=== PATIENT | male | born 1950 | race Caucasian/White ===

== ENCOUNTER → 2017-02-20 | Outpatient (CLI) | payer BC ==
[2017-02-20 10:11] LABS: ALT/SGPT 22 U/L (12-78); BLOOD UREA NITROGEN 19 mg/dl (7-18); BUN/CREATININE RATIO 19.9 (10-20); CARBON DIOXIDE 24 mmol/L (21-32); CHLORIDE 105 mmol/L (98-107); CHOLESTEROL 162 mg/dl (0-200); CREATININE 0.93 mg/dl (0.60-1.40); GLUCOSE 216 mg/dl (70-99); SODIUM 139 mmol/L (136-145); TRIGLYCERIDES 92 mg/dl (0-150); VERY LOW DENSITY LIPOPROT CALC 18 mg/dl
[2017-02-20 10:15] LABS: ALB/GLOB RATIO 1.1 (0.9-2); ALKALINE PHOSPHATASE 65 U/L (45-117); AST/SGOT 12 U/L (15-37); CHOLESTEROL/HDL RATIO 2.9; HDL CHOLESTEROL 56 mg/dl; LDL CHOLESTEROL CALCULATED 88 mg/dl
[2017-02-20 10:22] LABS: RATIO 45.5 mcg/mg (0-30.0)
[2017-02-20 10:38] LABS: ESTIMATED AVERAGE GLUCOSE 214 mg/dl; HA1C FLAG Normal (Normal)
== END | disposition home or self-care (01) ==
LOC: C.LAB1850 07:47
PROVIDERS: ATTEND Internal Medicine
DX: E11.9 Type 2 diabetes mellitus without complications (principal); N40.0 Benign prostatic hyperplasia without lower urinary tract symptoms

== ENCOUNTER → 2017-03-27 | Outpatient (CLI) | payer BC ==
[2017-03-28 07:35] LABS: ESTIMATED AVERAGE GLUCOSE 229 mg/dl; HA1C FLAG Normal (Normal)
== END | disposition home or self-care (01) ==
LOC: C.LAB1850 14:16
PROVIDERS: ATTEND Internal Medicine
DX: E11.8 Type 2 diabetes mellitus with unspecified complications (principal); E11.65 Type 2 diabetes mellitus with hyperglycemia; N52.1 Erectile dysfunction due to diseases classified elsewhere

== ENCOUNTER → 2017-04-10 | Outpatient (CLI) | payer BC ==
--- NOTE | 2017-04-10 13:39 | DIAGNOSTIC IMAGING REPORT ---
RIGHT ANKLE MIN 3 VIEWS CLINICAL HISTORY: Chronic right ankle pain COMPARISON: None. DISCUSSION: There are advanced arthritic changes present. There is flattening of the talar dome. There are subchondral cystic changes within the talus and tibial plafond. There are multiple corticated loose bodies. There is a small joint effusion. Prior avascular necrosis of the talus must be considered. IMPRESSION: Advanced arthritic changes involving the ankle with flattening of the talar dome. Prior avascular necrosis of the talus most be considered. Secondary subchondral cystic change within the tibial plafond and talus. Electronically signed by: Dannie Flores M.D. 04/10/2017 1:38 PM Dictated Date/Time: 04/10/2017 1:36 PM
== END | disposition home or self-care (01) ==
LOC: C.RDSM 10:59
PROVIDERS: ATTEND Internal Medicine
DX: M25.571 Pain in right ankle and joints of right foot (principal)

== ENCOUNTER → 2017-09-19 | Day surgery (SDC) | payer BC ==
[2017-09-05 16:43] VITALS: Ht 172.7 cm; Wt 73.6 kg
[~2017-09-19] VITALS: Ht 172.7 cm; Wt 73.6 kg
[~2017-09-19] MED LIST: AMT/25 PO; ASPI-461 PO; ATOR10TA82 PO; BUPIVACAINE 0.25% 2.5MG/ML PF 10 ML VIAL ONE; CYAN100020 PO; IOPAMIDOL INJ 61% 15 ML VIAL ONE; LIDOCAINE HCL 1% MPF 5 ML VIAL ONE; LSN/10125 PO; MELO15TA4 PO; METF-384 PO; METH500T37 PO; MULT-506 PO; NRN600 PO; PRED10TA PO; PRLSR20 PO; SODIUM CHLORIDE 0.9% INJ 10 ML VIAL ONE
--- NOTE | 2017-09-19 14:36 | History & Physical Bridge - SC ---
H&P Re-Evaluation Bridge Note: I have examined the patient, reviewed the History & Physical and in the interval since the performance of the History & Physical I have noted the following changes of clinical significance: No changes noted
[2017-09-19 15:00] VITALS: TEMP 37.5
--- NOTE | 2017-09-19 15:04 | Discharge Instructions ---
Discharge Instructions Date of Service Sep 19, 2017. Visit Reason for Visit: Lumbar Radiculopathy Discharge Discharge Diagnosis / Problem: left leg pain Discharge Goals Goal(s): Decrease discomfort, Improve function Medications Stopped Medications Name(s): ASA/MOBIC LAST DOSES SATURDAY Activity Recommendations Activity Limitations: resume your previous activity Anesthesia . Post Anesthesia Instructions: If you have had General Anesthesia or IV Sedation: * Do not drive today. * Resume driving when surgeon permits. * Do not make important decisions or sign legal documents today. * Call surgeon for: 1. Temperature elevations greater than 101 degrees F. 2. Uncontrollable pain. 3. Excessive bleeding. 4. Persistent nausea and vomiting. 5. Medication intolerance (nausea, vomiting or rash). * For nausea and vomiting use only clear liquids such as: tea, soda, bouillon until nausea subsides, then gradually increase diet as tolerated. * If you have any concerns or questions, call your surgeon's office. If physician is unavailable and it is an emergency, call 911 or go to the nearest emergency room. . Diet Recommendations Recommended Home Diet: resume previous diet Procedures Procedures Performed: LEFT L4-5 TRANSFORAMINAL EPIDURAL STEROID INJECTION Pending Studies Studies pending at discharge: no Medical Emergencies . Who to Call and When: Medical Emergencies: If at any time you feel your situation is an emergency, please call 911 immediately. . Non-Emergent Contact Non-Emergency issues call your: Specialist . . "Provider Documentation" section prepared by Los Boyer. .
--- NOTE | 2017-09-19 15:21 | OPERATIVE REPORT ---
DATE OF OPERATION: 09/19/2017 PREOPERATIVE DIAGNOSIS: Post-laminectomy syndrome with persistent left L4 radiculopathy. POSTOPERATIVE DIAGNOSIS: Same. PROCEDURE: Left transforaminal L4-L5 epidural steroid injection. SURGEON: Dr. Los Boyer. INDICATIONS: The patient is a 66-year-old white male who is bothered by intractable pain in the left L4 dermatomal distribution. He has had prior surgery in this area and decision is made to enter via a transforaminal approach to try to block and diminish the radicular symptoms with an epidural injection. PHYSICAL EXAMINATION: Pleasant male who is without any focal weakness, very slow moving. He has no sensory loss of the lower extremities. CONSENT: Verbal and written consent was obtained from the patient. Risks and benefits were reviewed. Risks include but are not limited to abscess, allergic reaction, hematoma. The patient wishes to proceed. PROCEDURE: The patient was taken back to the special procedures room of the [facility] where he was maintained in a prone position. Backside was cleansed with Betadine x3 and a dry sterile dressing was applied. Fluoroscope was used to identify the L4-L5 interlaminar space and the overlying skin in an oblique view targeting the inferior pedicle of L4 was then anesthetized with 5 mL of lidocaine 1% with a 25 gauge 1.5-inch needle. A 22 gauge 5 inch spinal needle was then directed under fluoroscopic guidance targeting inferior to the pedicle. It was advanced under AP guidance and then injected with Isovue 300 contrast when it obtained satisfactory position. The Isovue outlined the edge of the nerve L4. He then underwent injection after negative aspiration of 40 mg of Depo-Medrol and 1 mL of Bupivacaine. Injection was well tolerated. DISPOSITION: 1. The patient is taken out into the discharge recovery area where he will be discharged home once discharge criteria have been met. 2. Follow up in the [facility] office in 2-4 weeks. I attest to the content of the Intraoperative Record and any orders documented therein. Any exception s are noted below.
[2017-09-19 15:35] VITALS: BP 164/105; PULSE 96; O2SAT 97
== END | disposition home or self-care (01) ==
LOC: X.SURG 13:58
PROVIDERS: ATTEND Physical Medicine & Rehabilitation
DX: M96.1 Postlaminectomy syndrome, not elsewhere classified (principal); Z79.82 Long term (current) use of aspirin; Z79.899 Other long term (current) drug therapy; Z79.84 Long term (current) use of oral hypoglycemic drugs

== ENCOUNTER 2020-10-13 17:34 | Observation (INO) ==
[2020-10-13] MEDS ORDERED: LIDO/EPINEPHRINE/SOD BICARB 20 ML VIAL ONE (17:45)
[2020-10-13] MEDS ORDERED: LIDO/EPINEPHRINE/SOD BICARB 20 ML VIAL INFIL ONE (17:46)
[2020-10-13 18:23] LABS: Basophils # (auto) 0.04 K/uL (0-0.2); Basophils % (auto) 0.3 %; Eosinophils % (auto) 0.8 %; Hemoglobin 14.1 g/dL (14.0-18.0); Immature Granulocytes # (auto) 0.04 K/uL (0.00-0.02); Immature Granulocytes % (auto) 0.3 %; Lymphocytes # (auto) 1.72 K/uL (1.2-3.4); Lymphocytes % (auto) 13.4 %; Mean Corpuscular Hemoglobin 32.5 pg (25-34); Mean Corpuscular Hgb Conc 35.3 g/dL (32-36); Mean Corpuscular Volume 92.2 fL (80-100); Mean Platelet Volume 9.7 fL (7.4-10.4); Monocytes # (auto) 0.89 K/uL (0.11-0.59); Monocytes % (auto) 6.9 %; Neutrophils # (auto) 10.06 K/uL (1.4-6.5); Neutrophils % (auto) 78.3 %; Platelet Count 279 K/uL (130-400); RDW Coefficient of Variation 12.3 % (11.5-14.5); RDW Standard Deviation 42.2 fL (36.4-46.3); Red Blood Count 4.34 M/uL (4.7-6.1); White Blood Count 12.85 K/uL (4.8-10.8)
--- NOTE | 2020-10-13 18:32 | CT Scan Report ---
HEAD CT NONCONTRAST CT DOSE: 1068.35 mGy.cm HISTORY: Fall. eval for trauma TECHNIQUE: Multiaxial CT images of the head were performed without the use of intravenous contrast. A utomated exposure control was utilized for this study. A dose lowering technique was utilized adheri ng to the principles of ALARA. Comparison: None. Findings: Nasal bone deformities are likely due to old, healed fractures. The paranasal sinuses and m astoid air cells are clear. Scalp laceration at the vertex. The calvarium and skull base are intact. There is no mass, hematoma, midline shift, acute infarct. White matter hypodensity is nonspecific but suggestive of microvascular ischemic change. The ventricles and sulci demonstrate mild age-related i nvolutional changes. Impression: 1. No acute intracranial abnormality. 2. Scalp laceration at the vertex. 3. Old, healed nasal bone fractures. ACT 112: Negative or not required by law. Electronically signed by: Acosta Veliz M.D. 10/13/2020 6:31 PM
[2020-10-13 18:38] LABS: Albumin Level 4.1 gm/dl (3.4-5.0); BUN Creatinine Ratio 19.1 (10-20); Calcium 9.4 mg/dl (8.5-10.1); Creatinine Clr Calc Pharmacy 50.3 ml/min; Est GFR (African American) 62.2; Est GFR (Non-African American) 53.7; Potassium 4.3 mmol/L (3.5-5.1)
[2020-10-13 18:42] LABS: Albumin Globulin Ratio 1.2 (0.9-2); Bilirubin,Total 0.4 mg/dl (0.2-1); Globulin 3.4 gm/dl (2.5-4.0); Total Protein 7.5 gm/dl (6.4-8.2)
--- NOTE | 2020-10-13 18:44 | CT Scan Report ---
CERVICAL SPINE CT CT DOSE: HISTORY: Fall. eval for trauma TECHNIQUE: Multiaxial CT images of the cervical spine were performed and reformatted in the sagittal and coronal plane without the use of contrast. A dose lowering technique was utilized adhering to th e principles of ALARA. COMPARISON: None. FINDINGS: No fractures. Slight reversal of the normal lordotic curvature. Mild anterolisthesis of C3 on C4 and C4 on C5. This is likely due to the long-standing degenerative change. Moderate facet osteo arthritis throughout the majority of the cervical spine. There is mild disc space narrowing at C3-C4. Moderate disc space narrowing at C4-C5 and C6-C7. Severe disc space narrowing at C5-C6 with large an terior osteophytes. There is moderate central canal narrowing at C5-C6. Prevertebral soft tissues and the C1-C2 interval are intact. No pneumothorax. IMPRESSION: No fractures within the cervical spine. Degenerative changes as described above. ACT 112: Negative or not required by law. Electronically signed by: Acosta Veliz M.D. 10/13/2020 6:43 PM
--- NOTE | 2020-10-13 19:23 | Emergency Department Note ---
History of Present Illness General Chief complaint: Wound Stated complaint: FALL, LAC TO TOP OF HEAD Time Seen by Provider: 10/13/20 17:42 Source: patient and EMS Mode of arrival: EMS Limitations: no limitations History of Present Illness Maximum Pain Intensity: 4 This Patient comes in after falling off of a barstool and hitting his head causing a large laceration with a significant mount of blood loss. He was dr donato and celebrating his 70th birthday today when he said he fell off the stool. He does not think he lost consciousness. He said he had a significant blood around his house and had to crawl on the floor to the phone to get 911 called. He does have a prosthetic leg. He denies any significant headache. Upon arrival he has a pressure dressing placed with some soaked blood on it. He has no numbness or weakness no neck pain or stiffness no chest pain or shortness of breath or syncope no abdominal pain. Does admit to drinking. He is followed by Dr. Rosenberg. He says his tetanus shot was 4 years ago Home Medications Medication Instructions Recorded Confirmed Type aspirin [Aspirin Low Dose] 81 mg PO DAILY 04/19/20 10/13/20 History gabapentin 600 mg PO TID 04/19/20 10/13/20 History loratadine 10 mg PO DAILY PRN 04/19/20 10/13/20 History meloxicam 15 mg PO DAILY 04/19/20 10/13/20 History metformin 1,000 mg PO BID 04/19/20 10/13/20 History omeprazole 20 mg PO QPM PRN 04/19/20 10/13/20 History rosuvastatin 20 mg PO DAILY 04/19/20 10/13/20 History sildenafil 25 mg PO DAILY PRN 04/19/20 10/13/20 History lisinopril 40 mg PO DAILY 10/13/20 10/13/20 History Allergies Allergy/AdvReac Type Severity Reaction Status Date / Time No Known Allergies Allergy Verified 10/13/20 21:19 Past Med/Surg History Medical History 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 History of total knee replacement bilateral Hx of vasectomy S/P amputation Right BKA (post op infection) S/P ankle fusion reconstruction of right ankle S/P debridement right leg stump (multiple) S/P epidural steroid injection Family History Mother Family history of diabetes mellitus Other No family history of adverse response to anesthesia Social History Smoking Status: Never smoker Second Hand Exposure: No; Hx Alcohol Use: Yes Alcohol type: hard liquor Hx Substance Use: No Preferred Language: Divehi Communication Ability: Effective Residential Sales Rep Required: No Beliefs That Will Affect Care: None Current Living Situation: Alone Feels Safe at Home: Yes Assistive Devices: Prosthesis Review of Systems A total of 10 systems reviewed and were otherwise negative Physical Exam Vital Signs Vital Signs - 24 hr 10/13/20 17:43 10/13/20 17:46 10/13/20 17:52 Temperature 36.6 C Temperature Source Oral Pulse Rate 106 H 107 H 102 H Pulse Rate from SpO2 Sensor 105 H 103 H Pulse Rhythm Regular Pulse Strength Normal Respiratory Rate 31 H 22 21 Respiratory Effort / Characteristics Non-Labored Respiratory Pattern Regular Blood Pressure 138/93 138/93 117/77 Blood Pressure Mean 108 108 90 Pulse Oximetry 96 99 95 Oxygen Delivery Method Room Air Sepsis Recent Fever Within 48 Hours No Sepsis New/Unexplained Change in Mental Status No Sepsis Action Taken by Nursing No Action Required 10/13/20 18:27 10/13/20 18:29 10/13/20 18:33 Temperature Temperature Source Pulse Rate 111 H 110 H Pulse Rate from SpO2 Sensor 113 H 106 H Pulse Rhythm Pulse Strength Respiratory Rate 20 18 Respiratory Effort / Characteristics Respiratory Pattern Blood Pressure 73/52 L 111/74 Blood Pressure Mean 59 86 Pulse Oximetry 98 97 98 Oxygen Delivery Method Room Air Sepsis Recent Fever Within 48 Hours Sepsis New/Unexplained Change in Mental Status Sepsis Action Taken by Nursing 10/13/20 20:02 Temperature Temperature Source Pulse Rate Pulse Rate from SpO2 Sensor 108 H Pulse Rhythm Pulse Strength Respiratory Rate 16 Respiratory Effort / Characteristics Respiratory Pattern Blood Pressure 100/79 Blood Pressure Mean 86 Pulse Oximetry 96 Oxygen Delivery Method Sepsis Recent Fever Within 48 Hours Sepsis New/Unexplained Change in Mental Status Sepsis Action Taken by Nursing General: Well developed well nourished older male who has a large bandage on his head that is bloodsoaked and has a significant dried blood on his close and extremities but he in no acute distress, breathing comfortably on room air. Normal speech HEENT: There is a large laceration in the mid posterior scalp which is linear it violates the galea and goes down to the skull. There is no step-off or skull fracture seen or palpated. There is a small amount of bleeding coming from a small arterial that is pumping on the left side. The total wound length is at least 10 inches. Pupils are equal round and reactive to light. Extraocular movements are intact. Oropharynx is pink with moist mucous membranes. No swelling of the mouth lips or tongue. Neck: Supple with a midline trachea. No meningeal signs or stiffness, no JVD or bruits. No Stridor. Chest: Clear to auscultation bilaterally. No wheezes or rhonchi. No increased work of breathing. Heart: Regular rate and rhythm without murmurs or gallops. Abdomen: Soft nontender, nondistended without rebound guarding or rigidity. Extremities: No cyanosis clubbing or edema. He does have a BKA in the 1 leg Spine/Back. Non tender to palpation. No CVA tenderness Skin: Good turgor without rashes. Neurologic exam: Cranial nerves two through 12 are intact. Motor and sensation are intact and symmetrical throughout with the exception of his amputation Procedures Free Text Procedures Hemorrhage control and wound exploration: Due to the patient's significant bleeding and blood loss I immediately looked at his wound and injected the wound edges with lidocaine with epinephrine. There is one small pumping arterial which I injected as well and the bleeding has stopped. The wound was explored I do not see any foreign bodies or step-off given the significant size and depth of the wound I did consult plastic surgery for wound closure. Course Administered Medications Multivitamins 10 ml/ Thiamine HCl 100 mg/ Folic Acid 1 mg/Sodium Chloride 1,011.2 mls @ 500 mls/hr IV .Q2H2M ONE Stop: 10/14/20 00:16 Last Admin: 10/13/20 22:41 Dose: 500 mls/hr Documented by: [id number] Thiamine HCl 100 mg/ Syringe 10 mls @ 2 mls/min IV Q24H [facility]; Protocol Stop: 11/12/20 21:46 Last Admin: 10/13/20 22:35 Dose: 2 mls/min Documented by: [id number] Folic Acid 1 mg/ Syringe 10 mls @ 5 mls/min IV Q24H [facility] Stop: 11/12/20 22:59 Last Admin: 10/13/20 22:35 Dose: 5 mls/min Documented by: [id number] Insulin Aspart (Insulin Aspart 100 Units/Ml 3 Ml Pen) 0 units SC ACHS [facility]AS Stop: 11/12/20 22:59 Last Admin: 10/13/20 22:39 Dose: 3 units Documented by: [id number] Cosigned by: [id number] Discontinued Medications Gabapentin (Gabapentin 600 Mg Tab) 1,200 mg PO NOW ONE Stop: 10/13/20 23:01 Last Admin: 10/13/20 22:35 Dose: 1,200 mg Documented by: [id number] Sodium Chloride (Nss 1000ml) 1,000 mls @ 999 mls/hr IV .Q1H1M ONE Stop: 10/13/20 22:03 Last Infusion: 10/13/20 22:45 Dose: 0 mls/hr Documented by: [id number] Admin: 10/13/20 21:19 Dose: 999 mls/hr Documented by: [id number] Lidocaine/Epinephrine (Lido/Epinephrine/Sod Bicarb 20 Ml Vial) Confirm Administered Dose 20 ml .ROUTE .STK-MED ONE Stop: 10/13/20 17:46 Last Admin: 10/13/20 17:56 Dose: 20 ml Documented by: [id number] Lidocaine/Epinephrine (Lido/Epinephrine/Sod Bicarb 20 Ml Vial) 20 ml INFIL NOW ONE Stop: 10/13/20 17:47 Last Admin: 10/13/20 17:57 Dose: Not Given Documented by: [id number] Critical Care Time Critical Care Time: Yes Total Critical Care Time: 30 Due to the patient's significant bleeding and concern for need for immediate hemostasis, consultation and frequent reassessment as well as extensive work-up, I have personally spent greater than 30 minutes of critical care time in the direct management of this patient. This includes bedside care, interpretation of diagnostic studies, and testing, discussion with consultants, patient, and family members, and other required patient management activities. This 30 minutes is in excess of all separately billable procedures. Medical Decision Making Differential Diagnosis Laceration, skull fracture, intracranial hemorrhage, cervical spine fracture, arrhythmia, anemia, intoxication Medical Records Attestation: I reviewed the patient's medical records. Home Medications Current Medication List: was personally reviewed by me Laboratory Data Attestation: I reviewed the patient's lab results. Result diagrams: 10/13/20 18:15 10/13/20 18:15 Lab Results 10/13/20 10/13/20 10/13/20 Range/Units 18:15 18:15 18:15 WBC 12.85 H (4.8-10.8) K/uL RBC 4.34 L (4.7-6.1) M/uL Hgb 14.1 (14.0-18.0) g/dL Hct 40.0 L (42-52) % MCV 92.2 (80-100) fL MCH 32.5 (25-34) pg MCHC 35.3 (32-36) g/dL RDW Std Deviation 42.2 (36.4-46.3) fL RDW Coeff of Imtiaz 12.3 (11.5-14.5) % Plt Count 279 (130-400) K/uL MPV 9.7 (7.4-10.4) fL Immature Gran % (Auto) 0.3 % Neut % (Auto) 78.3 % Lymph % (Auto) 13.4 % Nance % (Auto) 6.9 % Eos % (Auto) 0.8 % Baso % (Auto) 0.3 % Neut # (Auto) 10.06 H (1.4-6.5) K/uL Lymph # (Auto) 1.72 (1.2-3.4) K/uL Nance # (Auto) 0.89 H (0.11-0.59) K/uL Eos # (Auto) 0.10 (0-0.5) K/uL Baso # (Auto) 0.04 (0-0.2) K/uL Immature Gran # (Auto) 0.04 H (0.00-0.02) K/uL Sodium 138 (136-145) mmol/L Potassium 4.3 (3.5-5.1) mmol/L Chloride 104 (98-107) mmol/L Carbon Dioxide 19 L (21-32) mmol/L Anion Gap 15.0 H (3-11) BUN 26 H (7-18) mg/dl Creatinine 1.34 (0.6-1.4) mg/dl Est Cr Clr Drug Dosing 50.3 ml/min Est GFR ( Amer) 62.2 Est GFR (Non-Af Amer) 53.7 BUN/Creatinine Ratio 19.1 (10-20) Glucose 162 H (70-99) mg/dl Calcium 9.4 (8.5-10.1) mg/dl Total Bilirubin 0.4 (0.2-1) mg/dl AST 22 (15-37) U/L ALT 25 (12-78) U/L Alkaline Phosphatase 46 (45-117) U/L Troponin I (0-0.045) ng/ml Total Protein 7.5 (6.4-8.2) gm/dl Albumin 4.1 (3.4-5.0) gm/dl Globulin 3.4 (2.5-4.0) gm/dl Albumin/Globulin Ratio 1.2 (0.9-2) Ethyl Alcohol mg/dL (0-3) mg/dl Blood Type O Positive Antibody Screen NEGATIVE 10/13/20 10/13/20 Range/Units 18:15 18:52 WBC (4.8-10.8) K/uL RBC (4.7-6.1) M/uL Hgb (14.0-18.0) g/dL Hct (42-52) % MCV (80-100) fL MCH (25-34) pg MCHC (32-36) g/dL RDW Std Deviation (36.4-46.3) fL RDW Coeff of Imtiaz (11.5-14.5) % Plt Count (130-400) K/uL MPV (7.4-10.4) fL Immature Gran % (Auto) % Neut % (Auto) % Lymph % (Auto) % Nance % (Auto) % Eos % (Auto) % Baso % (Auto) % Neut # (Auto) (1.4-6.5) K/uL Lymph # (Auto) (1.2-3.4) K/uL Nance # (Auto) (0.11-0.59) K/uL Eos # (Auto) (0-0.5) K/uL Baso # (Auto) (0-0.2) K/uL Immature Gran # (Auto) (0.00-0.02) K/uL Sodium (136-145) mmol/L Potassium (3.5-5.1) mmol/L Chloride (98-107) mmol/L Carbon Dioxide (21-32) mmol/L Anion Gap (3-11) BUN (7-18) mg/dl Creatinine (0.6-1.4) mg/dl Est Cr Clr Drug Dosing ml/min Est GFR ( Amer) Est GFR (Non-Af Amer) BUN/Creatinine Ratio (10-20) Glucose (70-99) mg/dl Calcium (8.5-10.1) mg/dl Total Bilirubin (0.2-1) mg/dl AST (15-37) U/L ALT (12-78) U/L Alkaline Phosphatase (45-117) U/L Troponin I 0.034 (0-0.045) ng/ml Total Protein (6.4-8.2) gm/dl Albumin (3.4-5.0) gm/dl Globulin (2.5-4.0) gm/dl Albumin/Globulin Ratio (0.9-2) Ethyl Alcohol mg/dL 212.3 H (0-3) mg/dl Blood Type Antibody Screen Imaging Data Radiologist's Impression: HEAD CT NONCONTRAST CT DOSE: 1068.35 mGy.cm HISTORY: Fall. eval for trauma TECHNIQUE: Multiaxial CT images of the head were performed without the use of intravenous contrast. Automated exposure control was utilized for this study. A dose lowering technique was utilized adhering to the principles of ALARA. Comparison: None. Findings: Nasal bone deformities are likely due to old, healed fractures. The paranasal sinuses and mastoid air cells are clear. Scalp laceration at the vertex. The calvarium and skull base are intact. There is no mass, hematoma, midline shift, acute infarct. White matter hypodensity is nonspecific but suggestive of microvascular ischemic change. The ventricles and sulci demonstrate mild age-related involutional changes. Impression: 1. No acute intracranial abnormality. 2. Scalp laceration at the vertex. 3. Old, healed nasal bone fractures. CERVICAL SPINE CT CT DOSE: HISTORY: Fall. eval for trauma TECHNIQUE: Multiaxial CT images of the cervical spine were performed and reformatted in the sagittal and coronal plane without the use of contrast. A dose lowering technique was utilized adhering to the principles of ALARA. COMPARISON: None. FINDINGS: No fractures. Slight reversal of the normal lordotic curvature. Mild anterolisthesis of C3 on C4 and C4 on C5. This is likely due to the long- standing degenerative change. Moderate facet osteoarthritis throughout the majority of the cervical spine. There is mild disc space narrowing at C3-C4. Moderate disc space narrowing at C4-C5 and C6-C7. Severe disc space narrowing at C5-C6 with large anterior osteophytes. There is moderate central canal narrowing at C5-C6. Prevertebral soft tissues and the C1-C2 interval are intact. No pneumothorax. IMPRESSION: No fractures within the cervical spine. Degenerative changes as described above. ECG Data Attestation: I personally reviewed and interpreted this ECG as follows: Indication: + weakness Rate (beats per minute): 103 Rhythm: + sinus tachycardia ECG Intervals/blocks: + Normal QRS, + Normal QT and + Normal TX ECG [place]: + Normal ECG ST segments: + Normal ST segments ECG Findings: no PACs and no PVCs Comparison ECG Date: no prior available MDM Narrative This patient comes in as described above he was brought in by EMS after falling and hitting his head he had a large laceration with a large amount of blood lost. He has been hemodynamic stable here slightly tachycardic he has been drinking alcohol. I immediately worked on bleeding control and injected him with lidocaine 1% epinephrine. This did stop the bleeding and stop the arterial that was pumping. The wound was then explored and irrigated and due to the large nature and the complicated nature I did consult Dr. Rodriguez to close the wound in the ED which she did. The patient did have a CAT scan of the head and neck which were unremarkable for any acute injuries. His blood alcohol was over 212. His CO2 was a little low at 19 but he is no significant electrolyte or metabolic abnormalities. His initial hemoglobin is 14 however I suspect follow- up hemoglobins will be lower. He is up-to-date on his tetanus booster he tells me. He was Covid tested given that he will be admitted/observed. His EKG does not suggest ischemic changes and his troponin is not elevated. I do think he needs to be admitted/observe given the fact that he did hit his head and had a large amount of blood loss and was intoxicated have asked the [facility] team to see him in the ER for these measures Impression & Plan Laceration, Head injury, Alcohol intoxication, Fall, Tetanus-diphtheria vaccination administered less than 10 years ago Discharge Plan Visit Data Chief Complaint: Wound Stated Complaint: FALL, LAC TO TOP OF HEAD ED Provider: Tapan Benedict Discharge Problem: Laceration, Head injury, Alcohol intoxication, Fall, Tetanus-diphtheria vaccination administered less than 10 years ago Patient Disposition: Admitted As Inpatient Discharge Instructions Interventions: ED Discharge Assessment Last Done: 10/13/20 22:05 Discharge Problem: Head injury Qualifiers: Encounter type: initial encounter Qualified Code(s): S09.90XA - Unspecified injury of head, initial encounter Alcohol intoxication Qualifiers: Complication of substance-induced condition: uncomplicated Qualified Code(s): F10.920 - Alcohol use, unspecified with intoxication, uncomplicated Fall Qualifiers: Encounter type: initial encounter Qualified Code(s): W19.XXXA - Unspecified fall, initial encounter
[2020-10-13] MEDS ORDERED: SODIUM CHLORIDE 0.9% 1000ML 1,000 ML IV ONE (21:03)
--- NOTE | 2020-10-13 21:08 | Surgery Consultation ---
Date of Consultation October 13, 2020 Assessment & Plan (1) Laceration: Wound required repair, and could be performed today in the ER. Verbal consent was obtained from the patient. Risks including bleeding, infection, poor scarring, further procedure were discussed. The laceration was located on the scalp, extending from ear to ear across the vertex and through the galea. The skin was prepped with betadine, injected with 10 cc 1% lidocaine with epinephrine (in addition to [address] Benedict), again prepped with betadine and draped sterilely. The laceration measured 23 cm and did involve all layers of the scalp including the galea. Clot was removed, wound was explored and copiously irrigated with 1000 cc of NSS. A quarter inch richy drain was placed prior to closure. Layered repair was performed using 4-0 Vicryl to reapproximate galea. The closure was thus tension free, and michi were used to reapproximate the skin. The wound was cleansed with peroxide and 4x4s, abd, kerlix and an nerissa wrap was applied. The procedure was tolerated well. Patient will be admitted to medical service. Ice and dressing reinforcement ordered, as bloody drainage anticipated on dressing. Suggest oral abx. Will remove richy in am and change dressing. Once discharged, patient will need to follow up in our office early next week. (2) Alcohol intoxication: History of Present Illness History of Present Illness Renny presents after falling off of a barstool and hitting his head causing a large laceration with significant blood loss. He was drinking and celebrating his 70th birthday today when he said he fell off the stool. He does have a prosthetic leg, had difficulty getting to the phone. Does admit to drinking [address] Benedict evaluated the patient, noted persistent bleeding and was able to control it with lidocaine with epi and a pressure dressing, was concerned about size of laceration and exposure of bone, asked me to evaluate. Patient also had a head and c-spine CT which were negative. Last tetanus shot was 4 years ago. Allergies Allergy/AdvReac Type Severity Reaction Status Date / Time No Known Allergies Allergy Verified 10/13/20 21:19 Home Medications Medication Instructions Recorded Confirmed Type aspirin [Aspirin Low Dose] 81 mg PO DAILY 04/19/20 07/01/20 History gabapentin 600 mg PO TID 04/19/20 07/01/20 History loratadine 10 mg PO DAILY PRN 04/19/20 07/01/20 History meloxicam 15 mg PO DAILY 04/19/20 07/01/20 History metformin 1,000 mg PO BID 04/19/20 07/01/20 History omeprazole 20 mg PO QPM 04/19/20 07/01/20 History rosuvastatin 20 mg PO DAILY 04/19/20 07/01/20 History sildenafil 25 mg PO DAILY PRN 04/19/20 07/01/20 History lisinopril 40 mg PO DAILY 10/13/20 10/13/20 History Patient History Medical History 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 Results & Data ([facility]) Vital Signs (Past 12 Hours) Vital Signs Temp Pulse Resp BP Pulse Ox 10/13/20 18:33 98 10/13/20 18:29 110 H 18 111/74 97 10/13/20 18:27 111 H 20 73/52 L 98 10/13/20 17:52 102 H 21 117/77 95 10/13/20 17:46 97.9 F 107 H 22 138/93 99 10/13/20 17:43 106 H 31 H 138/93 96 Laboratory Results Hgb 14, WBC 12.8 Etoh [address] head reviewed, shows old nasal fractures, no skull fractures or intracranial abnormalities, CT c-spine no fractures PG Care Time/CCT Total # of Minutes Spent Total Time Spent with Patient: Total time spent is greater than 50% in coordination of care (as documented) at patient's floor/unit and/or counseling patient: Coding Level of Care Code 67133 Office/OBS Consult Lvl 2 (25 - SIGNIFICANT, SEPARATELY IDENTIFIABLE ) Diagnoses Laceration Alcohol intoxication F10.920 Complication of substance-induced condition: uncomplicated CPT Codes INTMD RPR S/A/T/EXT 12.6- 75161 ([id number]) (1) Alcohol intoxication Complication of substance-induced condition: uncomplicated Qualified Code(s): F10.920 - Alcohol use, unspecified with intoxication, uncomplicated
[2020-10-13] MEDS ORDERED: LORazepam 3 MG/6 ML VIAL IV PRN (21:47)
[2020-10-13] MEDS ORDERED: ACETAMINOPHEN 325 MG TAB PO PRN (21:47)
[2020-10-13] MEDS ORDERED: POLYETHYLENE (MIRALAX) 17 GM PACK PO PRN (21:47)
[2020-10-13] MEDS ORDERED: LORazepam 2 MG/4 ML VIAL IV PRN (21:47)
[2020-10-13] MEDS ORDERED: GABAPENTIN 1200MG ALCOHOL WITHDRAWAL LOAD PO STA (21:47)
[2020-10-13] MEDS ORDERED: ATIVAN IV ALCOHOL WITHDRAWL IV PRN (21:47)
[2020-10-13] MEDS ORDERED: NITROGLYCERIN SL 0.4 MG/TAB TAB SL PRN (21:47)
[2020-10-13] MEDS ORDERED: ONDANSETRON INJ 2 MG/ML 2 ML VIAL IV PRN (21:47)
[2020-10-13] MEDS ORDERED: LORazepam 1 MG/2 ML VIAL IV PRN (21:47)
[2020-10-13] MEDS ORDERED: MULTI-VITAMIN INFUSION 10 ML, THIAMINE HCL 100 MG, FOLIC ACID 1 MG in SODIUM CHLORIDE 0... IV ONE (22:15)
[2020-10-13] MEDS: INSULIN ASPART 100 UNITS/ML 3 ML PEN SC SCH (22:39)
[2020-10-13] MEDS ORDERED: GABAPENTIN 600 MG TAB PO ONE (23:00)
[2020-10-13] MEDS ORDERED: THIAMINE HCL 100 MG in SYRINGE 9 ML IV SCH (23:00)
[2020-10-13] MEDS ORDERED: FOLIC ACID 1 MG in SYRINGE 9.8 ML IV SCH (23:00)
[2020-10-13] MEDS ORDERED: LORATADINE 10 MG TAB PO PRN (23:10)
[2020-10-13] MEDS ORDERED: cephALEXin 500 MG CAP PO STA (23:12)
[2020-10-13] MEDS ORDERED: PANTOprazole 40 MG TAB PO PRN (23:26)
[2020-10-14] MEDS: SODIUM CHLORIDE 0.9% 1000ML 1,000 ML IV SCH ×2 (01:12→08:43)
--- NOTE | 2020-10-14 01:18 | History and Physical Report ---
DATE OF ADMISSION: 10/13/2020 CHIEF COMPLAINT: Status post fall and head injury. HISTORY OF PRESENT ILLNESS: A 70-year-old male with past medical history significant for type 2 diabetes, hyperlipidemia, hypertension, GERD, status post right BKA, spinal stenosis, history of hematuria, who lives alone, comes with a fall. The patient has today his 70th birthday. He was drinking alcohol sitting on his chair at home. When trying to get up, he suddenly fell and has noticed a lot of bleeding from his head. He says it took a lot of his energy to get to his phone and call 911 and they brought him here and he had a significant amount of bleeding. Imaging studies done in the ER, CT of the head, with scalp laceration of the vertex. Otherwise, no acute abnormalities. Cervical spine was negative. Plastic Surgery was consulted by the ER because of the laceration and it was sutured and drain was placed. Currently, the head is wrapped. His hemoglobin is stable at 14.1 and his alcohol level was 212. Patient is alert and oriented, was speaking fine. Currently denies any other complaints. Denies any headache. Denies any blurred visions, double visions. No earache, no runny nose, no sore throat, no cough, no fevers, no nausea, no vomiting, no chest pain or shortness of breath. Normal bowel and bladder movements. He is hemodynamically stable. The patient says he drinks alcohol every 2-3 days. ALLERGIES: No known drug allergies. PAST MEDICAL HISTORY: As mentioned above. PAST SURGICAL HISTORY: Right BKA, bilateral knee arthroplasty with bone debridement, right fusion of ankle joint, right fusion of the foot bones, removal of lumbar spine lamina 1-2 in 2011. MEDICATIONS: The patient is on Crestor 20 mg p.o. daily, metformin 1000 mg p.o. b.i.d., lisinopril 40 mg p.o. daily, loratadine 10 mg p.o. daily, meloxicam 15 mg p.o. daily, Revatio 20 mg as needed, omeprazole 20 mg p.o. daily, aspirin 81 mg p.o. daily, Tylenol as needed, multivitamins 1 tablet daily, Neurontin 600 mg p.o. t.i.d. FAMILY HISTORY: No family history in file. SOCIAL HISTORY: Lives alone. No smoking. As per the previous recording of alcohol, last drink was in 2011, but currently the patient says he drinks alcohol every 2-3 days. No drug use. REVIEW OF SYMPTOMS: As per HPI. Rest of review of symptoms negative. PHYSICAL EXAMINATION: GENERAL: The patient is of moderate build, not in acute distress. VITAL SIGNS: Temperature 36.6, pulse 110, respiratory rate 18, blood pressure 111/74, oxygen 98% on room air. HEENT: Pupils equal, round, reactive to light. Oral mucosa moist. NECK: No JVD, no neck masses seen. CARDIOVASCULAR: S1, S2. Regular rate and rhythm. No murmur, no gallop. RESPIRATORY SYSTEM: Normal AP diameter. No accessory muscle use. No wheezing, no crackles. ABDOMEN: Soft, bowel sounds present, nontender. No distention. CENTRAL NERVOUS SYSTEM: Alert and oriented, speech clear, tongue midline. No facial droop. Moves extremities. Head is in a dressing. EXTREMITIES: Right BKA. No edema, no erythema seen. LABORATORY DATA: WBC 12.8, hemoglobin 14.1, hematocrit 40, platelets 279. Sodium 138, potassium 4.3, chloride 104, CO2 of 19, BUN 26, creatinine 1.4, serum glucose 162, calcium 9.4, total bilirubin 0.4, AST 22, ALT 25, alkaline phosphatase 46. Troponin was 0.03. Ethyl alcohol 223. CT of the head with scalp laceration of the vertex. CT cervical spine: No acute findings. ASSESSMENT AND PLAN: A 70-year-old male who comes with fall and laceration of the scalp: 1. Fall with laceration of scalp. Alcoholism could be contributing. Also has right BKA. Fell from his s tool requiring sutures in the ER by plastic surgery and also drain placed. Head is in wraps now, We will follow up CT of the head in a.m. and plastic surgery consult. Monitor in the [email or web address] tele. Prophylactic keflex.PT and OT when stable. Close monitoring. 2. Alcoholism. The patient seems to have history of alcoholism in the past, but right now the patient says he drinks only every 2-3 days. Alcohol level is 212. He lives alone. We will give him banana bag, IV thiamine, IV folic acid in a.m. Gabapentin protocol with IV Ativan p.r.n. for now and monitor. 3. Type 2 diabetes. Hold his metformin, place him on insulin sliding scale. Follow his HbA1c level and follow blood sugars 4. Hypercholesterolemia, continue Crestor. 5. Hypertension, continue his lisinopril. 6. Deep venous thrombosis prophylaxis, sequential compression devices for now. 7. Disposition: Observe him in med tele. PT and OT prior to discharge. Social Service to help with discharge planning. BJ
[2020-10-14] MEDS: GABAPENTIN 600 MG TAB PO SCH ×2 (03:06→08:10)
[2020-10-14 05:54] LABS: Basophils # (auto) 0.02 K/uL (0-0.2); Basophils % (auto) 0.2 %; Eosinophils # (auto) 0.15 K/uL (0-0.5); Eosinophils % (auto) 1.3 %; Hematocrit (blood only) 30.5 % (42-52); Hemoglobin 10.6 g/dL (14.0-18.0); Immature Granulocytes # (auto) 0.02 K/uL (0.00-0.02); Immature Granulocytes % (auto) 0.2 %; Lymphocytes # (auto) 1.41 K/uL (1.2-3.4); Lymphocytes % (auto) 12.4 %; Mean Corpuscular Hemoglobin 32.1 pg (25-34); Mean Corpuscular Hgb Conc 34.8 g/dL (32-36); Mean Corpuscular Volume 92.4 fL (80-100); Mean Platelet Volume 9.6 fL (7.4-10.4); Monocytes # (auto) 1.18 K/uL (0.11-0.59); Monocytes % (auto) 10.3 %; Neutrophils # (auto) 8.63 K/uL (1.4-6.5); Neutrophils % (auto) 75.6 %; Platelet Count 225 K/uL (130-400); RDW Coefficient of Variation 12.5 % (11.5-14.5); RDW Standard Deviation 42.8 fL (36.4-46.3); White Blood Count 11.41 K/uL (4.8-10.8)
[2020-10-14 06:05] LABS: INR 1.1 (0.9-1.1); Partial Thromboplastin Time 25.3 Seconds (21.0-31.0); Prothrombin Time 10.8 Seconds (9.0-12.0)
[2020-10-14 06:28] LABS: BUN Creatinine Ratio 23.7 (10-20); Calcium 8.1 mg/dl (8.5-10.1); Creatinine Clr Calc Pharmacy 67.5 ml/min; Est GFR (African American) 88.6; Est GFR (Non-African American) 76.5; Magnesium 1.9 mg/dl (1.8-2.4); Potassium 4.4 mmol/L (3.5-5.1)
[2020-10-14 06:43] LABS: Estimated Average Glucose 143 mg/dl; Hemoglobin A1C 6.6 % (4.5-5.6)
[2020-10-14] MEDS: INSULIN ASPART 100 UNITS/ML 3 ML PEN SC SCH ×2 (08:11→12:06)
--- NOTE | 2020-10-14 08:53 | CT Scan Report ---
HEAD CT NONCONTRAST CT DOSE: 614.27 mGy.cm HISTORY: Head injury. s/p fall TECHNIQUE: Multiaxial CT images of the head were performed without the use of intravenous contrast. A utomated exposure control was utilized for this study. A dose lowering technique was utilized adheri ng to the principles of ALARA. Comparison: None. Findings: Old, healed nasal bone fractures are again noted. The paranasal sinuses and mastoid air jerry ls are clear. The calvarium and skull base are intact. There is a large scalp laceration at the verte x. This now demonstrates skin michi and a surgical drain. Edema with small foci of gas within the s calp vertex are likely secondary to the laceration and postoperative changes. The calvarium and skull base are intact. There is no mass, hematoma, midline shift, acute infarct. White matter hypodensity is nonspecific but suggestive of microvascular ischemic change. The ventricles and sulci demonstrate mild age-related involutional changes. Impression: 1. No acute intracranial abnormality. 2. Redemonstration of the large scalp laceration with associated scalp edema and small foci of gas wi thin the scalp. There are now skin michi and a surgical drain at the laceration. ACT 112: Negative or not required by law. Electronically signed by: Acosta Veliz M.D. 10/14/2020 8:52 AM
[2020-10-14] MEDS ORDERED: cephALEXin 500 MG CAP PO SCH (09:00)
[2020-10-14] MEDS ORDERED: ROSUVASTATIN CALCIUM 20 MG TAB PO SCH (09:00)
[2020-10-14] MEDS ORDERED: lisinopril 40 MG TAB PO SCH (09:00)
--- NOTE | 2020-10-14 10:02 | Discharge Summary ---
Date of Service October 14, 2020 Admission HPI Per Admitting Provider 70-year-old male with past medical history significant for type 2 diabetes, hyperlipidemia, hypertension, GERD, status post right BKA, spinal stenosis, history of hematuria, who lives alone, comes with a fall. The patient has today his 70th birthday. He was drinking alcohol sitting on his chair at home. When trying to get up, he suddenly fell and has noticed a lot of bleeding from his head. He says it took a lot of his energy to get to his phone and call 911 and they brought him here and he had a significant amount of bleeding. Imaging studies done in the ER, CT of the head, with scalp laceration of the vertex. Otherwise, no acute abnormalities. Cervical spine was negative. Plastic Surgery was consulted by the ER because of the laceration and it was sutured and drain was placed. Currently, the head is wrapped. His hemoglobin is stable at 14.1 and his alcohol level was 212. Patient is alert and oriented, was speaking fine. Currently denies any other complaints. Denies any headache. Denies any blurred visions, double visions. No earache, no runny nose, no sore throat, no cough, no fevers, no nausea, no vomiting, no chest pain or shortness of breath. Normal bowel and bladder movements. He is hemodynamically stable. The patient says he drinks alcohol every 2-3 days. Admission Exam Per Admitting Provider PHYSICAL EXAMINATION: GENERAL: The patient is of moderate build, not in acute distress. VITAL SIGNS: Temperature 36.6, pulse 110, respiratory rate 18, blood pressure 111/74, oxygen 98% on room air. HEENT: Pupils equal, round, reactive to light. Oral mucosa moist. NECK: No JVD, no neck masses seen. CARDIOVASCULAR: S1, S2. Regular rate and rhythm. No murmur, no gallop. RESPIRATORY SYSTEM: Normal AP diameter. No accessory muscle use. No wheezing, no crackles. ABDOMEN: Soft, bowel sounds present, nontender. No distention. CENTRAL NERVOUS SYSTEM: Alert and oriented, speech clear, tongue midline. No facial droop. Moves extremities. Head is in a dressing. EXTREMITIES: Right BKA. No edema, no erythema seen. Principal Diagnosis 1. Fall with laceration of scalp. 2. Alcoholism. 3. Type 2 diabetes. 4. Hypercholesterolemia 5. Hypertension Discharge Exam ROS-No Headache, No Visual Changes, No Nausea, No Vomiting, No Fever, No Chills, No Neck Pain or Stiffness, No Chest Pain, No Palpitations, No SOB, No BONE, No Cough, No Sputum, No Wheezing, No Abdominal Pain, No Diarrhea, No Hematemesis, No Hemoptysis, No Unexpected Weight Loss, No Flank pain, No Melena, No Hematochezia, No Frequency, No Urgency, No Burning, No Hematuria, No Rashes, No Diaphoresis. Appetite is Normal Physical Exam Gen-AAO x 3, NAD, Afebrile Head-Head Vicente Wrapped, EOMI, PERRLA, Anicteric Sclera, No Posterior Pharyngeal Erythema Neck-Supple, No JVD, No Thyromegaly, No Masses, No LAD, No Bruits Lungs-Clear to Auscultation Bilaterally, No Rales, No Rhonchi, No Wheezing, No Crepitus Chest-No S4, +S1, +S2, No S3, No Murmurs, No Rubs, No Gallops, No Ectopy Abdomen-Soft, Bowel Sounds Present, Non Tender, Non Distended, No Hepatomegaly, No Splenomegaly, No Palpable Masses, No Rebound, No Rigidity, No Guarding Musculoskeletal-Full Range of Motion Bilaterally, No CVAT Extremities-No Cyanosis, No Clubbing, No Edema, R BKA Nuero-Cranial Nerves II-XII grossly intact, Motor WNL, DTRs WNL, Strength WNL, Non Focal Psych-Normal Mood Discharge Data Allergies Allergy/AdvReac Type Severity Reaction Status Date / Time No Known Allergies Allergy Verified 10/13/20 21:19 Consultations 10/13/20 19:30 ED Decision to Admit Stat 10/13/20 21:47 Consult Case Management - Discharge Planning Routine Consult Plastic Surgery Routine Ordered Studies 10/13/20 17:46 CT cervical spine wo con Stat CT head/brain wo con Stat 10/14/20 08:00 CT head/brain wo con Routine Current Diagnoses Alcohol use, unspecified with intoxication, uncomplicated (10/13/20) Allergies No Known Allergies Allergy (Verified 10/13/20 21:19) Height/Weight/Isolation Height 5 ft 8 in Weight 76.6 kg Chemistry 10/13/20 10/14/20 18:15 05:35 Sodium 138 142 Potassium 4.3 4.4 Chloride 104 113 H Carbon Dioxide 19 L 22 Anion Gap 15.0 H 7.0 BUN 26 H 24 H Creatinine 1.34 1.00 D Glucose 162 H 132 H Hospital Course (1) Laceration: (2) Head injury: (3) Alcohol intoxication: (4) Fall: (5) Type 2 diabetes mellitus: (6) Below-knee amputation of right lower extremity: ASSESSMENT AND PLAN: A 70-year-old male who comes with fall and laceration of the scalp: 1. Fall with laceration of scalp. Alcoholism could be contributing. Also has right BKA. Fell from his stool requiring sutures in the ER by plastic surgery and also drain placed. Head is in wraps now, We will follow up CT of the head in a.m. and plastic surgery consult. Monitor in the [employer]. Prophylactic keflex. PT and OT when stable. Close monitoring. 2. Alcoholism. The patient seems to have history of alcoholism in the past, but right now the patient says he drinks only every 2-3 days. Alcohol level is 212. He lives alone. We will give him banana bag, IV thiamine, IV folic acid in a.m. Gabapentin protocol with IV Ativan p.r.n. for now and monitor. 3. Type 2 diabetes. Hold his metformin, place him on insulin sliding scale. Follow his HbA1c level and follow blood sugars 4. Hypercholesterolemia, continue Crestor. 5. Hypertension, continue his lisinopril. 6. Deep venous thrombosis prophylaxis, sequential compression devices for now. 7. Disposition: DC Today. PT and OT prior to discharge. Social Service to help with discharge planning. Labs Checked Dressing changed and Drain Removed, f/u c Plastics Saturday ROS-+Headache, No Visual Changes, No Nausea, No Vomiting, No Fever, No Chills, No Neck Pain or Stiffness, No Chest Pain, No Palpitations, No SOB, No BONE, No Cough, No Sputum, No Wheezing, No Abdominal Pain, No Diarrhea, No Hematemesis, No Hemoptysis, No Unexpected Weight Loss, No Flank pain, No Melena, No Hematochezia, No Frequency, No Urgency, No Burning, No Hematuria, No Rashes, No Diaphoresis. Appetite is Normal Physical Exam Gen-AAO x 3, NAD, Afebrile Head-Head Lac, EOMI, PERRLA, Anicteric Sclera, No Posterior Pharyngeal Erythema Neck-Supple, No JVD, No Thyromegaly, No Masses, No LAD, No Bruits Lungs-Clear to Auscultation Bilaterally, No Rales, No Rhonchi, No Wheezing, No Crepitus Chest-No S4, +S1, +S2, No S3, No Murmurs, No Rubs, No Gallops, No Ectopy Abdomen-Soft, Bowel Sounds Present, Non Tender, Non Distended, No Hepatomegaly, No Splenomegaly, No Palpable Masses, No Rebound, No Rigidity, No Guarding Musculoskeletal-Full Range of Motion Bilaterally, No CVAT Extremities-No Cyanosis, No Clubbing, No Edema Nuero-Cranial Nerves II-XII grossly intact, Motor WNL, DTRs WNL, Strength WNL, Non Focal Psych-Normal Mood Total Time Total Time Spent Total Time Spent (In Minutes): 45 min Total Time Includes: Examination of the Patient, Discharge Planning, Medication Reconciliation and Communication With Other Providers Discharge Plan Discharge Items Patient Disposition: Home - Self-Care Reason For Visit: FALL Discharge Diagnosis: 1. Fall with laceration of scalp. 2. Alcoholism. 3. Type 2 diabetes. 4. Hypercholesterolemia 5. Hypertension Condition on Discharge: Good Activity: Resume your previous activity Lifting: Gradually increase as tolerated Bathing Comment: Patient is not allowed to shower until directed by Dr. Rodriguez's office. Sexual Activity: When tolerated Exercise/Sports: Gradually increase as tolerated Driving/Machine Use: No limitations Weightbearing: Full weightbearing Non-emergency contact: Primary Care Provider and Surgeon Call non-emergency contact if: you have any medication questions Follow-up/Referrals: Lucero Rodriguez MD [Physician] - (Please follow-up with Dr. Rodriguez's office on Saturday, October 17, 2020 at 9:30AM. ) Su Keller DO [Primary Care Provider] - (Date & Time 10/19/2020 11:00 AM Provider Sorin Barba DO [facility] ) Diet: Carb Consistent or DM2 and Heart Healthy Addtl Attending Provider Instructions: Please keep headwrap and dressings in place. Do not remove them. Dr. Rodriguez's office will discuss dressings at your visit on Saturday, October 17, 2020 at 9:30AM. Pending Studies at Discharge: No Stand-Alone Forms: My [facility], Smoking Cessation Medications and DC Order Prescriptions: New acetaminophen 325 mg Tablet 650 mg PO Q4H PRN (Reason: fever or pain) Qty: 100 RF: 0 cephalexin 500 mg Capsule 500 mg PO BID Qty: 14 RF: 0 Continued gabapentin 600 mg Tablet 600 mg PO TID RF: 0 meloxicam 15 mg Tablet 15 mg PO DAILY RF: 0 sildenafil 25 mg Tablet 25 mg PO DAILY PRN (Reason: Erectile Dysfunction) RF: 0 aspirin [Aspirin Low Dose] 81 mg Tablet,Delayed Release (Dr/Ec) 81 mg PO DAILY RF: 0 metformin 1,000 mg Tablet 1,000 mg PO BID RF: 0 loratadine 10 mg Tablet 10 mg PO DAILY PRN (Reason: seasonal allergies) RF: 0 rosuvastatin 20 mg Tablet 20 mg PO DAILY RF: 0 omeprazole 20 mg Tablet,Delayed Release (Dr/Ec) 20 mg PO QPM PRN (Reason: Acid Reflux) RF: 0 lisinopril 40 mg tablet 40 mg PO DAILY RF: 0 Discharge Orders: Discharge Order (Routine); Ordered 10/14/20 Ordered By: [place]/Other Patient Handouts: Managing Type 2 Diabetes, Managing Diabetes: The A1C Test Admission Data Admit Date/Time: 10/13/20 20:25 Attending Provider: [place] Rodriguez Admit Provider: Lucas Nugent Primary Care Provider: Su Keller Other Providers: Lucas Nugent ; Lucero Rordiguez
--- NOTE | 2020-10-14 10:42 | Surgery Progress Note ---
Date of Service October 14, 2020 Assessment & Plan (1) Laceration: Dressing change completed at bedside with [place] drain removal. Aquacel AG on drain opening, Xeroform placed on remainder of incision, 4 x 4 s and ABD placed. Head wrapped with Kerlix and then KRISTEN wrap- tape applied to h old wrap in place. We discussed that he will keep headwrap and all dressings in place until he is seen in our office on Saturday morning at 9:30AM. Patient ok for discharge to home from our standpoint. Discharge per primary team if patient is stable. Abx per primary team. He is aware that he is not allowed to shower. He has been using Tylenol as needed for pain control. He will continue to use Tylenol as needed for pain control. All questions answered. We will see him at follow-up in [facility] office this coming Saturday at 9:30AM. (2) Alcohol intoxication: Admission and Anticipated Discharge Date Admission Date: October 13, 2020 Subjective Renny is resting comfortably at bedside. He is status post head laceration repair by Dr. Rodriguez. He notes that he is feeling well. He rates his pain a 1/10. He denies headache, nausea or vomitingm and denies visual changes. He is tolerating a regular diet. He is eager for discharge to home today. He reports that he is getting his COVID-19 vaccine tomorrow and does not want to miss it. Physical Exam Physical Exam: On physical exam- KRISTEN wrap applied around head- removed to view Kerlix, 4 x 4s and ABD. 4 x 4s and ABD have a moderate amount of dried blood on them. Dressings were easily removed. [place] drain in place (suture) on patient's right side of head. Suture easily cut and richy easily removed. There was minimal bloody drainage appreciated following richy removal. Drain opening was well-approximated following drain removal. Aquacel AG placed overtop drain opening site. Remainder of incision is dry, intact, and well- approximated with michi. There is dried blood along the incision, but no evidence of active bleeding. There is no evidence of infection. Incision was dressed with Xeroform and then covered with 4 x 4s, ABD, Kerlix, and wrapped with KRISTEN wrap. Results & Data ([facility]) Vital Signs (Past 12 Hours) Vital Signs Temp Pulse Resp BP Pulse Ox 10/14/20 08:13 37.1 C 81 18 129/80 94 10/14/20 04:00 36.9 C 77 18 131/82 95 PG Care Time/CCT Total # of Minutes Spent Total Time Spent with Patient: Total time spent is greater than 50% in coordination of care (as documented) at patient's floor/unit and/or counseling patient: Coding Level of Care Code None Diagnoses Laceration Alcohol intoxication F10.920 Complication of substance-induced condition: uncomplicated (1) Alcohol intoxication Complication of substance-induced condition: uncomplicated Qualified Code(s): F10.920 - Alcohol use, unspecified with intoxication, uncomplicated
--- NOTE | 2020-10-14 13:21 | Electrocardiogram Report ---
Test Reason : Blood Pressure : / mmHG Vent. Rate : 103 BPM Atrial Rate : 103 BPM P-R Int : 166 ms QRS Dur : 080 ms QT Int : 354 ms P-R-T Axes : 039 -08 026 degrees QTc Int : 463 ms Poor data quality, interpretation may be adversely affected Sinus tachycardia Otherwise normal ECG No previous ECGs available Confirmed by Derik Love ([id number]) on 10/14/2020 1:20:57 PM Referred By: REFERRED SELF Confirmed By:Derik Love
[2020-10-14] MEDS ORDERED: GABAPENTIN 600 MG TAB PO SCH (18:00)
[2020-10-15] MEDS ORDERED: GABAPENTIN 600 MG TAB PO SCH (22:00)
[2020-10-17] MEDS ORDERED: GABAPENTIN 600 MG TAB PO SCH (10:00)
== END 2020-10-14 12:35 | disposition home or self-care (01) ==
LOC: 2W 17:34 → ED 17:34 → 2W 22:05

== ENCOUNTER 2025-05-30 16:15 | Inpatient (IN) ==
--- NOTE | 2025-05-30 16:27 | Emergency Department Note ---
Impression & Plan Head injury, Laceration of head, Closed rib fracture, Fall ED Provider Note NAME: YAMILEX SINHA AGE: 74 SEX: M : 1950 ARRIVES VIA: Ambulance INFORMANT: Patient ED PROVIDER(S): Jacob Krause DO CHIEF COMPLAINT: Fall HPI: Patient is a 74-year-old male with a past medical history of prostate cancer and diabetes who presents ER following mechanical fall. He was walking inside after drinking wine. He notes his prosthetic on his right leg shoe fell off and it pulled his prosthetic down and he fell and hit his head. He did not lose consciousness. He denies any neck pain chest pain belly pain but notes he does have an abrasion on his right lateral chest wall. He denies any other pain here. No tingling or numbness. He notes he was not dizzy or lightheaded prior to this. ADDITIONAL HISTORY OBTAINED: Per HPI Chronic Medical/Social Conditions Affecting Care: Per HPI PAST MEDICAL HISTORY:See Below PAST SURGICAL HISTORY:See Below FAMILY HISTORY:See Below SOCIAL HISTORY:See Below HOME MEDICATIONS:See Below ALLERGIES:See Below VITALS:See Below PHYSICAL EXAMINATION: GENERAL: alert, well appearing, well nourished, no distress, non-toxic HEAD: normal cephalic, large laceration to the right forehead EYE EXAM: normal conjunctiva, PERRL and EOM's grossly intact OROPHARYNX: no exudate, no erythema, lips, buccal mucosa, and tongue normal and mucous membranes are moist NECK: supple, no nuchal rigidity, no adenopathy, non-tender CHEST: stable to compression anteriorly and posteriorly. Small abrasion over right lateral chest wall LUNGS: clear to auscultation. Normal chest wall mechanics HEART: no murmurs, S1 normal and S2 normal ABDOMEN: abdomen soft, non-tender, normo-active bowel sounds, no masses, no rebound or guarding. PELVIS: stable to compression anteriorly and posteriorly BACK: Back is symmetrical on inspection and there is no deformity, no midline tenderness, no CVA tenderness. UPPER EXTREMITIES: full active and passive range of motion of all joints without tenderness to palpation LOWER EXTREMITIES: full active and passive range of motion of all joints without tenderness to palpation NEURO EXAM: Normal sensorium, cranial nerves II-XII grossly intact, normal speech, no gross weakness of arms, no gross weakness of legs. GCS: 15. MEDICAL DECISION MAKING: Patient is a 74-year-old male who presents ER with above-stated complaint. IV was established blood work was obtained. Labs showed no significant leukocytosis or anemia. BMP with slightly low CO2 at 20 and mild Which is likely secondary to alcohol intoxication. Glucose 190. LFTs bilirubin unremarkable. Alcohol at 72. CT head and cervical spine was negative. X-rays of the ribs showed several rib fractures. Patient had 4 sutures placed by my PA. Please see his note for further details for the [address] of the chest and abdomen pelvis showed 3 rib fractures. Patient was given IV morphine for pain control. He was updated bedside. Discussed case with the hospitalist for further evaluation management treatment. Consults/Care Managements Discussions: Per MDM Triage Nursing notes reviewed. Limited review of prior medical records performed Vital Signs: reviewed and remarkable for no significant abnormalities Differential diagnosis: Differential diagnoses include major intracranial, cervical, spinal, thoracic, abdominal, pelvic and neurologic injury. Fracture, contusion, sprain, strain, laceration, abrasions included as well. ER treatment provided: See below Diagnostics interpreted by me include EKG and cardiac monitoring as listed below: -Cardiac Monitoring: An order was placed for continuous cardiac monitoring. The monitor shows a rate of 101 with sinus rhythm. -ECG: Sinus rhythm rate 97 Normal axis No PVCs QTc 467 -Laboratory studies:Interpreted by me as stated above in MDM and shown below. 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 Hx of vasectomy S/P amputation Right BKA (post op infection) S/P ankle fusion reconstruction of right ankle S/P epidural steroid injection History of total knee replacement bilateral History of back surgery "scrapped the bone away to relieve the pressure" Family History Mother Family history of diabetes mellitus Other No family history of adverse response to anesthesia Social History (Updated 07/14/24 @ 09:52 by Renetta Conde RN) Smoking Status: Never smoker Second Hand Exposure: No; Do You Dip or Chew Tobacco: No; Hx Alcohol Use: Yes Alcohol type: hard liquor Hx Substance Use: No Preferred Language: Polish Communication Ability: Effective [employer]ental Service Attendant Required: No Beliefs That Will Affect Care: None Current Living Situation: Alone current occupational status: retired Feels Safe at Home: Yes Diet: regular during the past year weight has: remained stable Assistive Devices: Glasses and Prosthesis Allergies Allergies Allergy/AdvReac Type Severity Reaction Status Date / Time No Known Allergies Allergy Verified 05/30/25 17:20 Home Meds Home Medications Medication Instructions Recorded Confirmed gabapentin 600 mg tablet 600 mg PO AMHS 04/19/20 05/30/25 metformin 1,000 mg tablet 1,000 mg PO BID 04/19/20 05/30/25 omeprazole 20 mg tablet,delayed 20 mg PO QAM 04/19/20 05/30/25 release rosuvastatin 20 mg tablet 20 mg PO QAM 04/19/20 05/30/25 lisinopril 40 mg tablet 40 mg PO QAM 10/13/20 05/30/25 amlodipine 5 mg tablet 5 mg PO QAM 05/30/25 05/30/25 empagliflozin 25 mg tablet 25 mg PO QAM 05/30/25 05/30/25 (Jardiance) hydrochlorothiazide 25 mg tablet 25 mg PO QAM 05/30/25 05/30/25 latanoprost 0.005 % eye drops 1 drp ophthalmic (eye) HS 05/30/25 05/30/25 Results & Data (ED) Vital Signs Vital Signs - 24 hr 05/30/25 16:15 05/30/25 16:15 05/30/25 16:15 Temperature 36.8 C 36.8 C Temperature Source Oral Oral Pulse Rate 108 H Pulse Rate [Right Finger] 108 H Pulse Rate from SpO2 Sensor Pulse Strength [Right] Respiratory Rate 16 16 Respiratory Effort / Characteristics Non-Labored Spontaneous Non-Labored Spontaneous Respiratory Depth Normal Normal Blood Pressure 115/84 Blood Pressure [Right Arm] 115/84 Blood Pressure Mean 94 Blood Pressure Mean [Right Arm] 94 Pulse Oximetry 97 97 97 Oxygen Delivery Method Room Air Room Air Room Air Oxygen Flow Rate Sepsis Recent Fever Within 48 Hours No Sepsis New/Unexplained Change in Mental Status N/A Sepsis Action Taken by Nursing No Action Required 05/30/25 16:15 05/30/25 17:14 05/30/25 17:15 Temperature 36.8 C Temperature Source Pulse Rate 108 H 105 H Pulse Rate [Right Finger] 110 H Pulse Rate from SpO2 Sensor Pulse Strength [Right] Normal Respiratory Rate 16 16 Respiratory Effort / Characteristics Non-Labored Spontaneous Respiratory Depth Normal Blood Pressure 115/84 Blood Pressure [Right Arm] 163/87 H Blood Pressure Mean Blood Pressure Mean [Right Arm] 112 Pulse Oximetry 97 96 Oxygen Delivery Method Room Air Room Air Oxygen Flow Rate 0 Sepsis Recent Fever Within 48 Hours Sepsis New/Unexplained Change in Mental Status Sepsis Action Taken by Nursing 05/30/25 18:15 05/30/25 19:03 05/30/25 20:03 Temperature Temperature Source Pulse Rate 99 H 91 H Pulse Rate [Right Finger] 102 H Pulse Rate from SpO2 Sensor 99 H 91 H Pulse Strength [Right] Respiratory Rate 16 26 H 24 Respiratory Effort / Characteristics Non-Labored Spontaneous Respiratory Depth Normal Blood Pressure 166/112 H 129/83 Blood Pressure [Right Arm] 114/91 Blood Pressure Mean 130 98 Blood Pressure Mean [Right Arm] 98 Pulse Oximetry 96 95 93 Oxygen Delivery Method Room Air Room Air Room Air Oxygen Flow Rate Sepsis Recent Fever Within 48 Hours Sepsis New/Unexplained Change in Mental Status Sepsis Action Taken by Nursing 05/30/25 21:05 05/30/25 21:21 05/30/25 21:30 Temperature Temperature Source Pulse Rate 98 H 89 93 H Pulse Rate [Right Finger] Pulse Rate from SpO2 Sensor 86 Pulse Strength [Right] Respiratory Rate 26 H 20 Respiratory Effort / Characteristics Respiratory Depth Blood Pressure 154/84 H 135/78 Blood Pressure [Right Arm] Blood Pressure Mean 107 111 Blood Pressure Mean [Right Arm] Pulse Oximetry 90 93 Oxygen Delivery Method Room Air Room Air Oxygen Flow Rate Sepsis Recent Fever Within 48 Hours Sepsis New/Unexplained Change in Mental Status Sepsis Action Taken by Nursing 05/30/25 22:00 Temperature Temperature Source Pulse Rate Pulse Rate [Right Finger] 93 H Pulse Rate from SpO2 Sensor Pulse Strength [Right] Respiratory Rate 24 Respiratory Effort / Characteristics Respiratory Depth Blood Pressure Blood Pressure [Right Arm] 148/98 H Blood Pressure Mean Blood Pressure Mean [Right Arm] 114 Pulse Oximetry 93 Oxygen Delivery Method Room Air Oxygen Flow Rate Sepsis Recent Fever Within 48 Hours Sepsis New/Unexplained Change in Mental Status Sepsis Action Taken by Nursing Laboratory Data 05/30/25 16:36 05/30/25 16:36 Lab Results 05/30/25 05/30/25 05/30/25 Range/Units 16:36 18:54 21:58 WBC 10.31 (4.8-10.8) K/ul RBC 4.80 (4.70-6.10) M/uL Hgb 14.8 (14.0-18.0) g/dl Hct 44.0 (42.0-52.0) % MCV 91.7 (80.0-100.0) fL MCH 30.8 (25.0-34.0) pg MCHC 33.6 (32.0-36.0) g/dL RDW Std Deviation 40.8 (36.4-46.3) fL RDW Coeff of Imtiaz 12.1 (11.5-14.5) % Plt Count 288 (130-400) K/uL MPV 9.0 L (9.4-12.4) fL Immature Gran % (Auto) 0.8 % Neut % (Auto) 75.0 % Lymph % (Auto) 15.0 % Norton % (Auto) 7.5 % Eos % (Auto) 1.2 % Baso % (Auto) 0.5 % Neut # (Auto) 7.74 H (1.40-6.50) K/uL Lymph # (Auto) 1.55 (1.20-3.40) K/uL Norton # (Auto) 0.77 H (0.11-0.59) K/uL Eos # (Auto) 0.12 (0.00-0.50) K/uL Baso # (Auto) 0.05 (0.00-0.20) K/uL Immature Gran # (Auto) 0.08 (0.01-0.20) K/uL Sodium 134 L (136-145) mmol/L Potassium 4.2 (3.5-5.1) mmol/L Chloride 99 (98-107) mmol/L Carbon Dioxide 20 L (21-32) mmol/L Anion Gap 15 H (3-11) BUN 30 H (6-23) mg/dl Creatinine 1.29 (0.6-1.4) mg/dl Est Cr Clr Drug Dosing 51.0 ml/min eGFR 58.55 BUN/Creatinine Ratio 23.3 H (10-20) Glucose 196 H (70-99(Fasting)) mg/dl POC Glucose 192 H 238 H (70-99) mg/dl Calcium 9.5 (8.6-10.3) mg/dl Total Bilirubin 0.4 (0.2-1.0) mg/dl AST 23 (13-39) U/L ALT 19 (7-52) U/L Alkaline Phosphatase 46 (34-104) U/L Total Protein 7.7 (6.0-8.3) gm/dl Albumin 4.6 (3.4-5.0) gm/dl Globulin 3.1 (2.5-4.0) gm/dl Albumin/Globulin Ratio 1.5 (0.9-2) Ethyl Alcohol mg/dL 71.9 H (<10.0) mg/dl Administered Medications Lidocaine (Lidocaine 5% 1 Patch) 1 patch TD HS CHAS Stop: 06/29/25 20:29 Last Admin: 05/30/25 20:40 Dose: 1 patch Documented By: MOSHE Discontinued Medications Sodium Chloride (Nss) 1,000 mls @ 999 mls/hr IV .Q1H1M ONE Stop: 05/30/25 19:50 Last Infusion: 05/30/25 19:55 Dose: Infused Documented By: Admin: 05/30/25 18:55 Dose: 999 mls/hr Documented By: AVIS Ioversol (Optiray 320 100ml) 93 ml IV ONCE ONE Stop: 05/30/25 18:45 Last Admin: 05/30/25 18:45 Dose: 93 ml Documented By: DEANA Ketorolac Tromethamine (Ketorolac Tromethamine 15 Mg/Ml Vial) 15 mg IV NOW STA Stop: 05/30/25 21:03 Last Admin: 05/30/25 21:25 Dose: 15 mg Documented By: MOSHE Lidocaine (Lidocaine/Epineph/Tetracaine 1 Ea Syr) 1 each EXT NOW STA Stop: 05/30/25 16:25 Last Admin: 05/30/25 16:31 Dose: 1 each Documented By: RAMILA Lidocaine HCl (Lidocaine 1% Local 20 Ml Vial) 10 ml INFIL NOW ONE Stop: 05/30/25 16:40 Last Admin: 05/30/25 19:14 Dose: 10 ml Documented By: MOSHE Miscellaneous (Remove Lidoderm Patch) 1 each N/A DAILY@2100 CHAS Stop: 06/29/25 20:59 Last Admin: 05/30/25 21:23 Dose: Not Given Documented By: MOSHE Morphine Sulfate (Morphine Sulfate 2 Mg/Ml Carp) 2 mg IV NOW STA Stop: 05/30/25 19:00 Last Admin: 05/30/25 19:14 Dose: 2 mg Documented By: MOSHE Morphine Sulfate (Morphine Sulfate 4 Mg/Ml 1 Ml Carp\\Vial) 3 mg IV NOW STA Stop: 05/30/25 20:27 Last Admin: 05/30/25 20:39 Dose: 3 mg Documented By: MOSHE Imaging Data Radiologist's Impression: Cervical Spine CT 05/30/25 16:24 CT cervical spine without IV contrast History: Trauma Comparison: None Technique: Using multidetector thin collimation helical acquisition technique, axial, coronal and sagittal CT images through the cervical spine were obtained without intravenous contrast. Dose reduction techniques were achieved by using automatic exposure control and/or adjustment of mA and/or kV according to patient size and/or use of iterative reconstruction technique. Findings: The cervical vertebrae are normally aligned. Straightened cervical lordosis. No acute fracture or subluxation. No prevertebral edema. There are multilevel discogenic degenerative changes, including severe disc height loss at C5-6, and moderate to severe at C6-7 and C7-T1. There is 2 mm anterolisthesis of C4, related to degenerative facet change. No abnormality of the paraspinous soft tissues. Impression: No acute fracture or traumatic subluxation. Electronically signed by Adeel Stewart 05-30-2025 5:[address] 05/30/25 16:24 CT head without contrast History: Trauma Comparison: None Technique: Using multidetector thin collimation helical acquisition technique, axial, coronal and sagittal CT images from the skull base to the vertex were obtained without intravenous contrast. Dose reduction techniques were achieved by using automatic exposure control and/or adjustment of mA and/or kV according to patient size and/or use of iterative reconstruction technique. Findings: No intracranial hemorrhage, mass-effect, or midline shift. The ventricles are proportionate to the cerebral sulci. The hatch to white matter differentiation of the cerebral hemispheres is preserved. The basal cisterns are patent. There is moderate cerebral atrophy. Moderate, patchy low-attenuation changes in the white matter, most suggestive of sequelae of chronic small vessel ischemic disease. The visualized paranasal sinuses are clear. Mastoid air cells are clear. Impression: No acute intracranial pathology. Electronically signed by Adeel Stewart 05-30-2025 5:42 PM Ribs w/Chest X-Ray 05/30/25 16:24 EXAM: Portable AP chest radiograph and right rib series TECHNIQUE: AP portable radiograph of the chest and 5 views of the right ribs were obtained. INDICATION: Chest pain Comparison: None. FINDINGS: LINES and TUBES: None CARDIOVASCULAR: Cardiac silhouette is mildly enlarged in size. LUNGS/PLEURA: No focal consolidation identified. No significant pleural fluid. No discernible pneumothorax. OSSEOUS/OTHER: Mildly displaced acute traumatic fractures of the right 5th through the 9th ribs laterally IMPRESSION: Mildly displaced acute traumatic fractures of the right 5th through the 9th ribs laterally Electronically signed by Dallas Friedman 05-30-2025 6:36 PM Abdomen/Pelvis CT 05/30/25 18:28 CT of the abdomen pelvis with contrast Technique: Postcontrast axial images of the abdomen pelvis. Coronal and sagittal reformatted images made available for review No comparison Findings: Please see separate dictation for details of the intrathoracic contents. Nondisplaced right anterior lateral eighth rib fracture. Nondisplaced right posterior lateral ninth rib fracture. Nondisplaced right posterior lateral 10th rib fracture. Mild left hydroureteronephrosis. R 1.3 cm hypodensity right kidney measures greater than fluid density. Remaining solid abdominal organs unremarkable in appearance. No free air or intestinal obstruction. Distended urinary bladder. Calcified prostate. Multilevel degenerative changes of the lumbar spine. Bilateral hip osteoarthritis. Impression Nondisplaced right anterior lateral eighth rib fracture. Right posterior lateral ninth rib fracture. Nondisplaced right posterior lateral 10th rib fracture. Mild left hydroureteronephrosis 1.3 cm hypodensity right kidney measures greater than fluid density and indeterminate. Renal ultrasound recommended for further evaluation. Electronically signed by Jacob Baca 05-30-2025 8:[address] 05/30/25 18:28 CT of the chest with contrast Technique: Postcontrast axial images of the chest. Coronal and sagittal reformatted images made available for review No comparison Findings: Lungs are clear without focal infiltrates or effusions. Coronary artery calcifications. Thoracic aorta is unremarkable. No pulmonary embolus. No pneumothorax. Nondisplaced posterior lateral right ninth rib fracture. Nondisplaced posterior lateral right 10th rib fracture. Impression Nondisplaced posterior lateral right 9th and 10th rib fractures Electronically signed by Jacob Baca 05-30-2025 8:13 PM Discharge Plan Visit Data Chief Complaint: Trauma ED Provider: Jacob Krause Discharge Problem: Head injury, Laceration of head, Closed rib fracture, Fall Condition: Fair Forms Stand Alone Forms: [facility] Prescriptions Prescriptions: No Action gabapentin 600 mg Tablet 600 mg PO AMHS metformin 1,000 mg Tablet 1,000 mg PO BID rosuvastatin 20 mg Tablet 20 mg PO QAM omeprazole 20 mg Tablet,Delayed Release (Dr/Ec) 20 mg PO QAM lisinopril 40 mg tablet 40 mg PO QAM latanoprost 0.005 % drops 1 drp ophthalmic (eye) HS Jardiance 25 mg tablet 25 mg PO QAM amlodipine 5 mg tablet 5 mg PO QAM hydrochlorothiazide 25 mg tablet 25 mg PO QAM Referrals Referrals: Froylan Enriquez DO [Primary Care Provider] - Discharge Problem: Head injury Qualifiers: Encounter type: initial encounter Qualified Code(s): S09.90XA - Unspecified injury of head, initial encounter Laceration of head Qualifiers: Encounter type: initial encounter Location of open wound of head: unspecified part of head Foreign body presence: without foreign body Qualified Code(s): S 01.91XA - Laceration without foreign body of unspecified part of head, initial encounter Closed rib fracture Qualifiers: Encounter type: initial encounter Rib fracture type: multiple ribs Laterality: right Qualified Code(s): S22.41XA - Multiple fractures of ribs, right side, initial encounter for closed fracture Fall Qualifiers: Encounter type: initial encounter Qualified Code(s): W19.XXXA - Unspecified fall, initial encounter
[2025-05-30] MEDS: LIDOCAINE/EPINEPH/TETRACAINE 1 EA SYR EXT STA (16:31)
[2025-05-30 16:52] LABS: Hematocrit (blood only) 44.0 % (42.0-52.0); Hemoglobin 14.8 g/dl (14.0-18.0); Immature Granulocytes # (auto) 0.08 K/uL (0.01-0.20); Immature Granulocytes % (auto) 0.8 %; Mean Corpuscular Hemoglobin 30.8 pg (25.0-34.0); Mean Corpuscular Volume 91.7 fL (80.0-100.0); Platelet Count 288 K/uL (130-400); RDW Standard Deviation 40.8 fL (36.4-46.3); Red Blood Count 4.80 M/uL (4.70-6.10); White Blood Count 10.31 K/ul (4.8-10.8)
[2025-05-30 17:09] LABS: Alanine Aminotransferase 19.0 U/L (7-52); Albumin Globulin Ratio 1.5 (0.9-2); Albumin Level 4.6 gm/dl (3.4-5.0); Alkaline Phosphatase 46.0 U/L (34-104); Anion Gap 15.0 (3-11); Bilirubin,Total 0.4 mg/dl (0.2-1.0); Blood Urea Nitrogen 30.0 mg/dl (6-23); Calcium 9.5 mg/dl (8.6-10.3); Carbon Dioxide 20.0 mmol/L (21-32); Chloride 99.0 mmol/L (98-107); Creatinine Clr Calc Pharmacy 51.0 ml/min; Globulin 3.1 gm/dl (2.5-4.0); Glucose 196.0 mg/dl (70-99(Fasting)); Potassium 4.2 mmol/L (3.5-5.1); Sodium 134.0 mmol/L (136-145); Total Protein 7.7 gm/dl (6.0-8.3)
--- NOTE | 2025-05-30 17:43 | CT Scan Report ---
CT cervical spine without IV contrast History: Trauma Comparison: None Technique: Using multidetector thin collimation helical acquisition technique, axial, coronal and sagittal CT images through the cervical spine were obtained without intravenous contrast. Dose reduction techniques were achieved by using automatic exposure control and/or adjustment of mA and/or kV according to patient size and/or use of iterative reconstruction technique. Findings: The cervical vertebrae are normally aligned. Straightened cervical lordosis. No acute fracture or subluxation. No prevertebral edema. There are multilevel discogenic degenerative changes, including severe disc height loss at C5-6, and moderate to severe at C6-7 and C7-T1. There is 2 mm anterolisthesis of C4, related to degenerative facet change. No abnormality of the paraspinous soft tissues. Impression: No acute fracture or traumatic subluxation. Electronically signed by Adeel Stewart 05-30-2025 5:42 PM
--- NOTE | 2025-05-30 17:44 | CT Scan Report ---
CT head without contrast History: Trauma Comparison: None Technique: Using multidetector thin collimation helical acquisition technique, axial, coronal and sagittal CT images from the skull base to the vertex were obtained without intravenous contrast. Dose reduction techniques were achieved by using automatic exposure control and/or adjustment of mA and/or kV according to patient size and/or use of iterative reconstruction technique. Findings: No intracranial hemorrhage, mass-effect, or midline shift. The ventricles are proportionate to the cerebral sulci. The hatch to white matter differentiation of the cerebral hemispheres is preserved. The basal cisterns are patent. There is moderate cerebral atrophy. Moderate, patchy low-attenuation changes in the white matter, most suggestive of sequelae of chronic small vessel ischemic disease. The visualized paranasal sinuses are clear. Mastoid air cells are clear. Impression: No acute intracranial pathology. Electronically signed by Adeel Stewart 05-30-2025 5:42 PM
--- NOTE | 2025-05-30 17:56 | Emergency Department Note ---
ED Visit Note Patient seen and evaluated the request of my attending physician, Dr. Krause, for right-sided forehead laceration. Please see Dr. Krause's dictation for full history of present illness and emergency department course outside of this repair In short, the patient had a fall with subsequent laceration to the forehead. On examination he has a fairly linear 4.0 cm laceration that does gape and will require repair. Laceration repair. Patient elects to have their laceration repaired. Verbal consent was obtained to perform the procedure. There is an abundance of materials available for the procedure. Patient is not allergic to latex. Using sterile technique the wound was cleaned with Betadine. The area was sterilely draped. LET gel was used to anesthetize the forehead laceration. Once the patient was anesthetized, the wound was copiously irrigated under pressure with sterile saline. The wound was explored and there were no deep str uctures injured such as tendons, bone, or significant blood vessels. The laceration was repaired using 4 simple interrupted 5-0 nylon sutures with the wound edges being well approximated. Hemostasis was achieved. The area was cleaned with sterile saline and dressed with bacitracin ointment and bandage. Patient tolerated the procedure well without complications. Blood loss was negligible. .
--- NOTE | 2025-05-30 18:37 | XRay Report ---
EXAM: Portable AP chest radiograph and right rib series TECHNIQUE: AP portable radiograph of the chest and 5 views of the right ribs were obtained. INDICATION: Chest pain Comparison: None. FINDINGS: LINES and TUBES: None CARDIOVASCULAR: Cardiac silhouette is mildly enlarged in size. LUNGS/PLEURA: No focal consolidation identified. No significant pleural fluid. No discernible pneumothorax. OSSEOUS/OTHER: Mildly displaced acute traumatic fractures of the right 5th through the 9th ribs laterally IMPRESSION: Mildly displaced acute traumatic fractures of the right 5th through the 9th ribs laterally Electronically signed by Dallas Friedman 05-30-2025 6:36 PM
[2025-05-30] MEDS: OPTIRAY 320 100ml IV ONE (18:45)
[2025-05-30] MEDS: SODIUM CHLORIDE 0.9% 1,000 ML IV ONE (18:55)
[2025-05-30] MEDS: LIDOCAINE 1% LOCAL 20 ML VIAL INFIL ONE (19:14)
[2025-05-30] MEDS: MoRPHine SULFATE 2 MG/ML CARP IV STA (19:14)
--- NOTE | 2025-05-30 20:13 | CT Scan Report ---
CT of the chest with contrast Technique: Postcontrast axial images of the chest. Coronal and sagittal reformatted images made available for review No comparison Findings: Lungs are clear without focal infiltrates or effusions. Coronary artery calcifications. Thoracic aorta is unremarkable. No pulmonary embolus. No pneumothorax. Nondisplaced posterior lateral right ninth rib fracture. Nondisplaced posterior lateral right 10th rib fracture. Impression Nondisplaced posterior lateral right 9th and 10th rib fractures Electronically signed by Jacob Baca 05-30-2025 8:13 PM
--- NOTE | 2025-05-30 20:18 | CT Scan Report ---
CT of the abdomen pelvis with contrast Technique: Postcontrast axial images of the abdomen pelvis. Coronal and sagittal reformatted images made available for review No comparison Findings: Please see separate dictation for details of the intrathoracic contents. Nondisplaced right anterior lateral eighth rib fracture. Nondisplaced right posterior lateral ninth rib fracture. Nondisplaced right posterior lateral 10th rib fracture. Mild left hydroureteronephrosis. R 1.3 cm hypodensity right kidney measures greater than fluid density. Remaining solid abdominal organs unremarkable in appearance. No free air or intestinal obstruction. Distended urinary bladder. Calcified prostate. Multilevel degenerative changes of the lumbar spine. Bilateral hip osteoarthritis. Impression Nondisplaced right anterior lateral eighth rib fracture. Right posterior lateral ninth rib fracture. Nondisplaced right posterior lateral 10th rib fracture. Mild left hydroureteronephrosis 1.3 cm hypodensity right kidney measures greater than fluid density and indeterminate. Renal ultrasound recommended for further evaluation. Electronically signed by Jacob Baca 05-30-2025 8:17 PM
--- NOTE | 2025-05-30 20:36 | History & Physical Report ---
Date of Service May 30, 2025 Assessment & Plan (1) Multiple fractures of ribs: Plan: Assessment and plan below following discussion of case with ED provider and reviewing patient history/pertinent normal/abnormal diagnostic test results. Traumatic multiple contiguous rib fractures in an elderly patient greater than 65 years of age Right 9th and 10th on CT imaging Traumatic right forehead laceration status post repair at the ER hypertension, slightly elevated secondary discomfort hyperlipidemia, on statin Rx Left hydronephrosis with right kidney cyst incidental finding on imaging, patient admits to urinary retention symptoms prostate cancer status post surgery DM 2 on oral medications, suboptimal control as of recent hemoglobin A1c of 9.14 August 2024 history of right BKA Admit to ICU as per [facility] Trauma committee recommendations Analgesia Encourage incentive spirometry Initiate Flomax for urinary retention symptoms Urology consult re: L hydronephrosis, right kidney cyst (Patient known to Dr. Gongora.) Basal bolus insulin, ISS BG goal 110-140, carb count coverage PT OT eval DVT prophylaxis. SCDs Re: Traumatic forehead laceration status post repair Full code Text document was generated using [employer] voice recognition software. It may contain grammatical or spelling errors. Kindly contact undersigned for clarification of any documentation item in question. History of Present Illness Chief Complaint: Fall, head trauma Primary Care Provider: Froylan Enriquez, History obtained from patient and records. 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 Last confinement 2020 for head trauma secondary to alcoholic intoxication. Patient fell at home after his right BKA prosthesis got caught on a sliding door. Patient fell forward landing on his right side. Subsequent head trauma resulting in bleeding wound on the right forehead. Denies LOC. Pleuritic chest pain from chest trauma. No abdominal pain but admits to urinary retention at home the last few weeks. No fever, no chills. Patient called 911. Right forehead laceration sutured at the ER. 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 Allergies Allergy/AdvReac Type Severity Reaction Status Date / Time No Known Allergies Allergy Verified 05/30/25 17:20 Home Medications Medication Instructions Recorded Confirmed Type gabapentin 600 mg tablet 600 mg PO AMHS 04/19/20 05/30/25 History metformin 1,000 mg tablet 1,000 mg PO BID 04/19/20 05/30/25 History omeprazole 20 mg tablet,delayed 20 mg PO QAM 04/19/20 05/30/25 History release rosuvastatin 20 mg tablet 20 mg PO QAM 04/19/20 05/30/25 History lisinopril 40 mg tablet 40 mg PO QAM 10/13/20 05/30/25 History amlodipine 5 mg tablet 5 mg PO QAM 05/30/25 05/30/25 History empagliflozin 25 mg tablet 25 mg PO QAM 05/30/25 05/30/25 History (Jardiance) hydrochlorothiazide 25 mg tablet 25 mg PO QAM 05/30/25 05/30/25 History latanoprost 0.005 % eye drops 1 drp ophthalmic (eye) HS 05/30/25 05/30/25 History Past Med/Surg History Problem List (Updated 05/31/25 @ 05:10 by Davide Sherman MD) Multiple fractures of ribs Fall (Acute) Closed rib fracture (Acute) Laceration of head (Acute) Prostate cancer (Chronic 06/10/24) Erectile dysfunction Elevated PSA Right lumbar radiculopathy Laceration (Acute) Head injury (Acute) Below-knee amputation of right lower extremity August 2019 - due to postop infection Type 2 diabetes mellitus NIDDM Medical History (Updated 05/31/25 @ 05:10 by Davide Sherman MD) Lumbar stenosis Degenerative disc disease Chronic back pain GERD (gastroesophageal reflux disease) well controlled currently Hyperlipidemia Hypertension Surgical History S/P debridement right leg stump (multiple) History of back surgery had to have a "clot" removed from the spinal area post operatively. Hx of vasectomy S/P amputation Right BKA (post op infection) S/P ankle fusion reconstruction of right ankle S/P epidural steroid injection History of total knee replacement bilateral History of back surgery "scrapped the bone away to relieve the pressure" Family History Mother Family history of diabetes mellitus Other No family history of adverse response to anesthesia Social History (Updated 07/14/24 @ 09:52 by Renetta Conde RN) Smoking Status: Former smoker Second Hand Exposure: No; Do You Dip or Chew Tobacco: No; Hx Alcohol Use: Yes Alcohol type: wine Hx Substance Use: No Preferred Language: Fijian Communication Ability: Effective 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 Beliefs That Will Affect Care: None Current Living Situation: Alone current occupational status: retired Feels Safe at Home: Yes Safety Concerns: Feels Safe At This Time Diet: regular during the past year weight has: remained stable Assistive Devices: Glasses and Prosthesis Review of Systems Review of Systems: As per HPI, all other systems reviewed and negative Physical Exam Physical Exam: GENERAL: Slightly uncomfortable and anxious, no respiratory distress SKIN: Normal color, warm HEENT: Sutured laceration right forehead with dried blood, pink palpebral conjunctivae, no ptosis, dry buccal mucosa NECK : Supple, no tenderness CHEST : Decreased breath sounds, right chest wall tenderness HEART : RRR, no obvious murmurs ABDOMEN: Some distention, nontender EXTREMITIES : RLE prosthetic, palpable pulses, no other conspicuous deformities noted NEUROLOGIC : Coherent, no facial asymmetry, no other gross focality Results & Data Results & Data Vital Signs (Past 12 Hours) Vital Signs Temp Pulse Pulse Resp BP BP Pulse Ox 05/30/25 20:03 91 H 24 129/83 93 05/30/25 19:03 99 H 26 H 166/112 H 95 05/30/25 18:15 102 H 16 114/91 96 05/30/25 17:15 110 H 16 163/87 H 96 05/30/25 17:14 105 H 05/30/25 16:15 36.8 C 108 H 16 115/84 97 05/30/25 16:15 97 05/30/25 16:15 36.8 C 108 H 16 115/84 97 05/30/25 16:15 36.8 C 108 H 16 115/84 97 O2 Del Method O2 Flow Rate 05/30/25 20:03 Room Air 05/30/25 19:03 Room Air 05/30/25 18:15 Room Air 05/30/25 17:15 Room Air 05/30/25 17:14 05/30/25 16:15 Room Air 0 05/30/25 16:15 Room Air 05/30/25 16:15 Room Air 05/30/25 16:15 Room Air Laboratory Results Laboratory Results WBC 10.31 K/ul (4.8-10.8) 05/30/25 16:36 RBC 4.80 M/uL (4.70-6.10) 05/30/25 16:36 Hgb 14.8 g/dl (14.0-18.0) 05/30/25 16:36 Hct 44.0 % (42.0-52.0) 05/30/25 16:36 MCV 91.7 fL (80.0-100.0) 05/30/25 16:36 MCH 30.8 pg (25.0-34.0) 05/30/25 16:36 MCHC 33.6 g/dL (32.0-36.0) 05/30/25 16:36 RDW Std Deviation 40.8 fL (36.4-46.3) 05/30/25 16:36 RDW Coeff of Imtiaz 12.1 % (11.5-14.5) 05/30/25 16:36 Plt Count 288 K/uL (130-400) 05/30/25 16:36 MPV 9.0 fL (9.4-12.4) L 05/30/25 16:36 Immature Gran % (Auto) 0.8 % 05/30/25 16:36 Neut % (Auto) 75.0 % 05/30/25 16:36 Lymph % (Auto) 15.0 % 05/30/25 16:36 Lyman % (Auto) 7.5 % 05/30/25 16:36 Eos % (Auto) 1.2 % 05/30/25 16:36 Baso % (Auto) 0.5 % 05/30/25 16:36 Neut # (Auto) 7.74 K/uL (1.40-6.50) H 05/30/25 16:36 Lymph # (Auto) 1.55 K/uL (1.20-3.40) 05/30/25 16:36 Lyman # (Auto) 0.77 K/uL (0.11-0.59) H 05/30/25 16:36 Eos # (Auto) 0.12 K/uL (0.00-0.50) 05/30/25 16:36 Baso # (Auto) 0.05 K/uL (0.00-0.20) 05/30/25 16:36 Immature Gran # (Auto) 0.08 K/uL (0.01-0.20) 05/30/25 16:36 Sodium 134 mmol/L (136-145) L 05/30/25 16:36 Potassium 4.2 mmol/L (3.5-5.1) 05/30/25 16:36 Chloride 99 mmol/L (98-107) 05/30/25 16:36 Carbon Dioxide 20 mmol/L (21-32) L 05/30/25 16:36 Anion Gap 15 (3-11) H 05/30/25 16:36 BUN 30 mg/dl (6-23) H 05/30/25 16:36 Creatinine 1.29 mg/dl (0.6-1.4) 05/30/25 16:36 Est Cr Clr Drug Dosing 51.0 ml/min 05/30/25 16:36 eGFR 58.55 05/30/25 16:36 BUN/Creatinine Ratio 23.3 (10-20) H 05/30/25 16:36 Glucose 196 mg/dl (70-99(Fasting)) H 05/30/25 16:36 POC Glucose 192 mg/dl (70-99) H 05/30/25 18:54 Calcium 9.5 mg/dl (8.6-10.3) 05/30/25 16:36 Total Bilirubin 0.4 mg/dl (0.2-1.0) 05/30/25 16:36 AST 23 U/L (13-39) 05/30/25 16:36 ALT 19 U/L (7-52) 05/30/25 16:36 Alkaline Phosphatase 46 U/L (34-104) 05/30/25 16:36 Total Protein 7.7 gm/dl (6.0-8.3) 05/30/25 16:36 Albumin 4.6 gm/dl (3.4-5.0) 05/30/25 16:36 Globulin 3.1 gm/dl (2.5-4.0) 05/30/25 16:36 Albumin/Globulin Ratio 1.5 (0.9-2) 05/30/25 16:36 Ethyl Alcohol mg/dL 71.9 mg/dl (<10.0) H 05/30/25 16:[address] 05/30/25 16:24 CT cervical spine without IV contrast History: Trauma Comparison: None Technique: Using multidetector thin collimation helical acquisition technique, axial, coronal and sagittal CT images through the cervical spine were obtained without intravenous contrast. Dose reduction techniques were achieved by using automatic exposure control and/or adjustment of mA and/or kV according to patient size and/or use of iterative reconstruction technique. Findings: The cervical vertebrae are normally aligned. Straightened cervical lordosis. No acute fracture or subluxation. No prevertebral edema. There are multilevel discogenic degenerative changes, including severe disc height loss at C5-6, and moderate to severe at C6-7 and C7-T1. There is 2 mm anterolisthesis of C4, related to degenerative facet change. No abnormality of the paraspinous soft tissues. Impression: No acute fracture or traumatic subluxation. Electronically signed by Adeel Stewart 05-30-2025 5:[address] 05/30/25 16:24 CT head without contrast History: Trauma Comparison: None Technique: Using multidetector thin collimation helical acquisition technique, axial, coronal and sagittal CT images from the skull base to the vertex were obtained without intravenous contrast. Dose reduction techniques were achieved by using automatic exposure control and/or adjustment of mA and/or kV according to patient size and/or use of iterative reconstruction technique. Findings: No intracranial hemorrhage, mass-effect, or midline shift. The ventricles are proportionate to the cerebral sulci. The hatch to white matter differentiation of the cerebral hemispheres is preserved. The basal cisterns are patent. There is moderate cerebral atrophy. Moderate, patchy low-attenuation changes in the white matter, most suggestive of sequelae of chronic small vessel ischemic disease. The visualized paranasal sinuses are clear. Mastoid air cells are clear. Impression: No acute intracranial pathology. Electronically signed by Adeel Stewart 05-30-2025 5:42 PM Ribs w/Chest X-Ray 05/30/25 16:24 EXAM: Portable AP chest radiograph and right rib series TECHNIQUE: AP portable radiograph of the chest and 5 views of the right ribs were obtained. INDICATION: Chest pain Comparison: None. FINDINGS: LINES and TUBES: None CARDIOVASCULAR: Cardiac silhouette is mildly enlarged in size. LUNGS/PLEURA: No focal consolidation identified. No significant pleural fluid. No discernible pneumothorax. OSSEOUS/OTHER: Mildly displaced acute traumatic fractures of the right 5th through the 9th ribs laterally IMPRESSION: Mildly displaced acute traumatic fractures of the right 5th through the 9th ribs laterally Electronically signed by Dallas Friedman 05-30-2025 6:36 PM Abdomen/Pelvis CT 05/30/25 18:28 CT of the abdomen pelvis with contrast Technique: Postcontrast axial images of the abdomen pelvis. Coronal and sagittal reformatted images made available for review No comparison Findings: Please see separate dictation for details of the intrathoracic contents. Nondisplaced right anterior lateral eighth rib fracture. Nondisplaced right posterior lateral ninth rib fracture. Nondisplaced right posterior lateral 10th rib fracture. Mild left hydroureteronephrosis. R 1.3 cm hypodensity right kidney measures greater than fluid density. Remaining solid abdominal organs unremarkable in appearance. No free air or intestinal obstruction. Distended urinary bladder. Calcified prostate. Multilevel degenerative changes of the lumbar spine. Bilateral hip osteoarthritis. Impression Nondisplaced right anterior lateral eighth rib fracture. Right posterior lateral ninth rib fracture. Nondisplaced right posterior lateral 10th rib fracture. Mild left hydroureteronephrosis 1.3 cm hypodensity right kidney measures greater than fluid density and indeterminate. Renal ultrasound recommended for further evaluation. Electronically signed by Jacob Baca 05-30-2025 8:[address] 05/30/25 18:28 CT of the chest with contrast Technique: Postcontrast axial images of the chest. Coronal and sagittal reformatted images made available for review No comparison Findings: Lungs are clear without focal infiltrates or effusions. Coronary artery calcifications. Thoracic aorta is unremarkable. No pulmonary embolus. No pneumothorax. Nondisplaced posterior lateral right ninth rib fracture. Nondisplaced posterior lateral right 10th rib fracture. Impression Nondisplaced posterior lateral right 9th and 10th rib fractures Electronically signed by Jacob Baca 05-30-2025 8:13 PM Diagnostic Findings EKG as per my interpretation :Rate 95, LAD, LAFB, T wave abnormalities inferior leads
[2025-05-30] MEDS: MoRPHine SULFATE 4 MG/ML 1 ML CARP\\VIAL IV STA (20:39)
[2025-05-30] MEDS: LIDOCAINE 5% 1 PATCH TD SCH (20:40)
[2025-05-30] MEDS ORDERED: PROMETHAZINE 6.25 MG/50.25 ML BAG IV PRN (21:23)
[2025-05-30] MEDS: REMOVE LIDODERM PATCH SCH (21:23)
[2025-05-30] MEDS ORDERED: LORazepam 0.5 MG TAB PO PRN (21:25)
[2025-05-30] MEDS: KETOROLAC TROMETHAMINE 15 MG/ML VIAL IV STA (21:25)
[2025-05-30] MEDS ORDERED: NALOXONE HCL 0.4 MG/1 ML VIAL/CARP IV PRN (21:26)
--- NOTE | 2025-05-30 22:13 | Critical Care Consultation ---
Date of Consultation May 30, 2025 Assessment & Plan (1) Fall: (2) Closed rib fracture: (3) Laceration of head: (4) Prostate cancer: Plan Reason Critically Ill: 1. R 5th - 10th nondisplaced rib fractures 2. Mechanical fall 3. Alcohol intoxication 4. Laceration of scalp s/p primary repair Neuro - CAM ICU: Negative RASS GOAL 0 Multimodal pain management as ordered OOB to chair, ambulate Monitor for signs of ETOH withdrawal Cardiac - No acute concerns MAP goal > 65mmHg Continue home antihypertensives in AM as hemodynamics allow Respiratory - SpO2 goal > 92% Pulmonary hygiene Aggressive pulmonary toileting/therapy Encourage deep breathing Multimodal pain management as above GI - Diet: Advance as tolerated SUP: N/A Bowel regimen: Miralax RENAL/LYTES - Replete electrolytes as indicated No indication for hauser Maintain net even to net negative Stop mIVF when taking adequate PO ENDO - BG 140-180 per SCC guidelines ISS if needed while inpatient HEME - No acute concerns ID - No acute concerns Bacitracin ointment to scalp laceration LINES/TUBES/DRAINS - PIV x2 DVT PROPHYLAXIS - Start enoxaparin in AM SCDs Ambulate I have personally spent 35 minutes of critical care time in the direct management of this patient. This is a life/limb threatening event. This includes time spent evaluating patient, direct bedside care, chart review, placing orders, interpretation of diagnostic studies, discussion with consultants, patient, and family members, as well as other required patient management activities. This time is exclusive of all separately billable procedures, and teaching time and separate from and in addition to any other critical care service time. Thank you for allowing us to participate in the care of this patient. Please refer to my attending physician's documentation for any further recommendations. History of Present Illness Reason for Consultation: Multiple rib fractures Requesting Physician: Selvin Attending Physician: Selvin History of Present Illness David Berrios is a 74YOM with a history of ambulatory dysfunction, HTN/HLD, GERD, NIDDMII (6.7% in 2022), R BKA, prostate cancer (low risk, surveillence) who presented to [facility] ED after a mechanical fall at his home residence. Per re port, patient had been drinking alcohol and tripped while trying to re-enter his home. He sustained trauma to the head and R chest wall. No LOC, no pre-syncope. Work-up revealed mild AG acidosis and hyperglycemia. Ethyl alcohol 72. On imaging he appears to have R 5-10 rib fractures, non-displaced in nature. No pneumothorax and hemothorax. He remained hemodynamically stable during ED course. R scalp laceration was repaired in ED with sutures. Given # of rib fractures the patient is admitted to ICU per protocol. Patient seen in ICU 109. He is AAOx3. No acute distress. HDS, AF, saturating 94% on RA. States pain is 5/10 and localized to R chest wall. Lidoderm patch in place. Scalp laceration is repaired and well-approximated with no active bleeding. He feels he is able to take a deep breath without significant difficulty. Will provide incentive spirometer. Patient states he drinks wine a couple of times a week with dinner. 10-point ROS reviewed and negative unless noted above. Allergies Allergy/AdvReac Type Severity Reaction Status Date / Time No Known Allergies Allergy Verified 05/30/25 17:20 Home Medications Medication Instructions Recorded Confirmed Type gabapentin 600 mg tablet 600 mg PO AMHS 04/19/20 05/30/25 History metformin 1,000 mg tablet 1,000 mg PO BID 04/19/20 05/30/25 History omeprazole 20 mg tablet,delayed 20 mg PO QAM 04/19/20 05/30/25 History release rosuvastatin 20 mg tablet 20 mg PO QAM 04/19/20 05/30/25 History lisinopril 40 mg tablet 40 mg PO QAM 10/13/20 05/30/25 History amlodipine 5 mg tablet 5 mg PO QAM 05/30/25 05/30/25 History empagliflozin 25 mg tablet 25 mg PO QAM 05/30/25 05/30/25 History (Jardiance) hydrochlorothiazide 25 mg tablet 25 mg PO QAM 05/30/25 05/30/25 History latanoprost 0.005 % eye drops 1 drp ophthalmic (eye) HS 05/30/25 05/30/25 History Patient History Medical History (Updated 05/30/25 @ 22:07 by Jacob Krause DO) Lumbar stenosis Degenerative disc disease Chronic back pain GERD (gastroesophageal reflux disease) well controlled currently Hyperlipidemia Hypertension Surgical History S/P debridement right leg stump (multiple) History of back surgery had to have a "clot" removed from the spinal area post operatively. Hx of vasectomy S/P amputation Right BKA (post op infection) S/P ankle fusion reconstruction of right ankle S/P epidural steroid injection History of total knee replacement bilateral History of back surgery "scrapped the bone away to relieve the pressure" Family History Mother Family history of diabetes mellitus Other No family history of adverse response to anesthesia Social History (Updated 07/14/24 @ 09:52 by Renetta Conde RN) Smoking Status: Former smoker Second Hand Exposure: No; Do You Dip or Chew Tobacco: No; Hx Alcohol Use: Yes Alcohol type: wine Hx Substance Use: No Preferred Language: Czech Communication Ability: Effective Mental Health Tech Required: No Beliefs That Will Affect Care: None Current Living Situation: Alone current occupational status: retired Feels Safe at Home: Yes Diet: regular during the past year weight has: remained stable Assistive Devices: Glasses and Prosthesis Review of Systems Review of Systems: All systems reviewed & are unremarkable except as noted in Subjective Physical Exam Constitutional: well developed, well nourished and cooperative; no acute distress Eyes: PERRL, conjunctivae normal, anicteric sclerae ENMT: external ear and nose normal, oropharynx normal Neck: trachea midline, no thyromegaly Respiratory: normal respiratory effort, lungs clear to auscultation Cardiovascular: RRR, no murmur, no edema Gastrointestinal (Abdomen): normal bowel sounds, soft, nontender, no hepatosplenomegaly Musculoskeletal: no cyanosis or clubbing, extremities motor strength 5/5 R BKA site is well-healed Ecchymosis without hematoma R posterolateral thorax Skin: Trauma: + laceration Warm, dry, well-perfused. R forehead laceration s/p repair Neurologic: PERRL, EOMI, accommodation nl, no face palsy, no dysarthria Genitourinary: Deferred Results & Data Results & Data Vital Signs (Past 12 Hours) Vital Signs Temp Pulse Pulse Resp BP BP Pulse Ox 05/30/25 22:00 93 H 24 148/98 H 93 05/30/25 21:30 93 H 20 135/78 93 05/30/25 21:21 89 26 H 154/84 H 90 05/30/25 21:05 98 H 05/30/25 20:03 91 H 24 129/83 93 05/30/25 19:03 99 H 26 H 166/112 H 95 05/30/25 18:15 102 H 16 114/91 96 05/30/25 17:15 110 H 16 163/87 H 96 05/30/25 17:14 105 H 05/30/25 16:15 36.8 C 108 H 16 115/84 97 05/30/25 16:15 97 05/30/25 16:15 36.8 C 108 H 16 115/84 97 05/30/25 16:15 36.8 C 108 H 16 115/84 97 O2 Del Method O2 Flow Rate 05/30/25 22:00 Room Air 05/30/25 21:30 Room Air 05/30/25 21:21 Room Air 05/30/25 21:05 05/30/25 20:03 Room Air 05/30/25 19:03 Room Air 05/30/25 18:15 Room Air 05/30/25 17:15 Room Air 05/30/25 17:14 05/30/25 16:15 Room Air 0 05/30/25 16:15 Room Air 05/30/25 16:15 Room Air 05/30/25 16:15 Room Air Laboratory Results Reviewed Diagnostic Findings Reviewed Medications Administered See MAR Coding Level of Care Code 19327 IN/OBS CONSULT LVL 2,35M Diagnoses Fall W19.XXXA Encounter type: initial encounter Closed rib fracture S22.41XA Encounter type: initial encounter Laterality: right Rib fracture type: multiple ribs Laceration of head S01.91XA Encounter type: initial encounter Foreign body presence: without foreign body Location of open wound of head: unspecified part of head Prostate cancer C61 Time Spent (min) 35 (1) Fall Encounter type: initial encounter Qualified Code(s): W19.XXXA - Unspecified fall, initial encounter (2) Closed rib fracture Encounter type: initial encounter Laterality: right Rib fracture type: multiple ribs Qualified Code(s): S22.41XA - Multiple fractures of ribs, right side, initial encounter for closed fracture (3) Laceration of head Encounter type: initial encounter Foreign body presence: without foreign body Location of open wound of head: unspecified part of head Qualified Code(s): S01.91XA - Laceration without foreign body of unspecified part of head, initial encounter
[2025-05-30] MEDS: LANTUS PER UNIT CHARGE SQ SCH (22:15)
[2025-05-30] MEDS: GABAPENTIN 600 MG TAB PO SCH (22:16)
[2025-05-30] MEDS: LATANOPROST 0.005% OP SOLN 2.5 ML BTL OP SCH (22:18)
[2025-05-30] MEDS: TAMSULOSIN HCL 0.4 MG CAP PO SCH (22:18)
[2025-05-30] MEDS ORDERED: GLUCOSE 40% GEL 15 GM TUBE PO PRN (22:52)
[2025-05-30] MEDS ORDERED: CARBOHYDRATES FOR HYPOGLYCEMIA PO PRN (22:52)
[2025-05-30] MEDS ORDERED: GLUCAGON FOR INJ 1 MG VIAL SQ PRN (22:52)
[2025-05-30] MEDS ORDERED: GLUCOSE 10 TAB/TUBE PO PRN (22:52)
[2025-05-30] MEDS ORDERED: DEXTROSE 50% 50 ML SYRINGE IV PRN (22:52)
[2025-05-30] MEDS: INSULIN ASPART PER UNIT CHARGE SC SCH (23:07)
[2025-05-30] MEDS: LACTATED RINGER'S 1,000 ML IV ONE (23:08)
[2025-05-31 01:13] LABS: Appearance Urine Clear (Clear); Bacteria Urine Automated None Seen (None Seen); Cast Urine Automated 0-2 /lpf (0-2); Epithelial Cell Urine Auto 0-2 /hpf (0-2); Glucose Urine UA 3+ (Negative); WBC Urine Automated 0-5 /hpf (0-5)
[2025-05-31 01:29] LABS: Amphetamines+Metham, Urine Neg (Neg); MDMA (Ecstacy), Urine Neg (Neg); Marijuana, Urine Neg (Neg)
--- NOTE | 2025-05-31 01:40 | Ultrasound Report ---
EXAM: US renal/blad retro comp CLINICAL HISTORY: R kidney hypodensity. TECHNIQUE: A renal ultrasound was performed using grayscale imaging. COMPARISON: No previous studies are available for comparison. FINDINGS: Right Kidney: The right kidney measures 10.3 x 5.9 x 5.6 cm. A small cortical cyst measuring 8 x 7 x 5 mm is seen in the middle pole, with a calcification likely within its wall. No hydronephrosis or calculi are identified. Renal parenchymal echogenicity is normal. Cortical thickness is within normal limits. Renal pelvis is within normal limits. Left Kidney: The left kidney measures 11.8 x 5.8 x 5.8 cm. Limited views. A focal hypoechoic area is seen at the junction of the left upper and mid pole and is seen bulging the renal cortex. It measures approximately 2 x 1.5 x 1.3 cm. No hydronephrosis or calculi are identified. Renal parenchymal echogenicity is normal. Cortical thickness is within normal limits. Renal pelvis is within normal limits. Urinary bladder: The urinary bladder is normally distended. No calculus or mass is noted in it. Bilateral ureteral jets are seen. The posterior wall shows mild irregularity, measuring 7 mm in thickness. IMPRESSION: A small cortical cyst measuring 8 x 7 x 5 mm is seen in the middle pole of the right kidney with a calcification likely within its wall. A focal hypoechoic area is seen at the junction of the upper and mid pole and is seen bulging the left renal cortex. Differentials include: prominent dromedary hump, complex cortical cyst. The urinary bladder wall in posterior aspect shows mild focal irregularity, measuring 7 mm in thickness. Further evaluation with CT renal protocol is advised if clinically indicated. Electronically signed by Anshu Cintron 05-31-2025 01:39 AM
[2025-05-31] MEDS: ACETAMINOPHEN 325 MG TAB PO PRN (03:18)
[2025-05-31 05:02] LABS: Anion Gap 5.0 (3-11); Blood Urea Nitrogen 26.0 mg/dl (6-23); Calcium 8.4 mg/dl (8.6-10.3); Carbon Dioxide 27.0 mmol/L (21-32); Chloride 101.0 mmol/L (98-107); Creatinine Clr Calc Pharmacy 53.9 ml/min; Glucose 161.0 mg/dl (70-99(Fasting)); Magnesium 1.8 mg/dl (1.7-2.4); Potassium 4.2 mmol/L (3.5-5.1); Sodium 133.0 mmol/L (136-145)
[2025-05-31 05:13] LABS: Hematocrit (blood only) 33.2 % (42.0-52.0); Hemoglobin 11.3 g/dl (14.0-18.0); Immature Granulocytes # (auto) 0.02 K/uL (0.01-0.20); Immature Granulocytes % (auto) 0.2 %; Mean Corpuscular Hemoglobin 31.2 pg (25.0-34.0); Mean Corpuscular Volume 91.7 fL (80.0-100.0); Platelet Count 225 K/uL (130-400); RDW Standard Deviation 41.1 fL (36.4-46.3); Red Blood Count 3.62 M/uL (4.70-6.10); White Blood Count 8.42 K/ul (4.8-10.8)
[2025-05-31] MEDS: BACITRACIN OINT 14 GM TUBE EXT SCH (07:31)
[2025-05-31] MEDS: ROSUVASTATIN CALCIUM 20 MG TAB PO SCH (07:32)
[2025-05-31] MEDS: POLYETHYLENE (MIRALAX) 17 GM PACK PO SCH (07:34)
[2025-05-31] MEDS: ENOXAPARIN INJ 40 MG/0.4 ML SYR SQ SCH (07:34)
[2025-05-31 08:12] LABS: Hematocrit (blood only) 36.7 % (42.0-52.0); Hemoglobin 12.5 g/dl (14.0-18.0)
--- NOTE | 2025-05-31 08:21 | Hospitalist Progress Note ---
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 Sustained rib fractures, closed head injury and head laceration. Scheduled pain control with Tylenol, Naprosyn and Lidoderm patch As needed oxycodone Therapies Monitoring in ICU per protocol Continue to monitor for alcohol withdrawal, however based on patient's history low suspicion for significant issues Case management for discharge planning Continue monitor glucose with insulin coverage Encourage incentive spirometry and deep breathing Encouraged activity as tolerated Admission and Anticipated Discharge Date Admission Date: May 30, 2025 Subjective Patient states pain around at 9. Just received some pain medication. States that he does not drink alcohol on a regular basis and can go days without drinking alcohol. Basically states that it was a football Saturday he had plans to spend the day at home watching football and drinking some alcoholic beverages. Denies any tremor or symptoms of withdrawal. Physical Exam Physical Exam: Constitutional: Alert, nontoxic, no acute distress HEENT: Mucous membranes moist. Lungs: Decreased breath sounds, no wheezes CV: S1-S2, regular Abdomen: Soft, nontender, nondistended Extremities: No significant edema Musculoskeletal: Tenderness palpation right ribs Neuro: No focal deficits Psych: Cooperative, normal mood Results & Data Results & Data Vital Signs (Past 12 Hours) Vital Signs Temp Pulse Pulse Resp BP BP Pulse Ox 05/31/25 08:00 88 26 H 96 05/31/25 07:42 89 18 97 05/31/25 07:30 36.8 C 05/31/25 07:15 59 L 12 96 05/31/25 07:00 66 15 94 05/31/25 05:30 57 L 16 95 05/31/25 05:27 102/60 05/31/25 05:27 102/60 05/31/25 05:27 102/60 05/31/25 05:07 99/64 L 05/31/25 05:07 99/64 L 05/31/25 04:56 15 94 05/31/25 04:32 79 15 92 05/31/25 04:05 108/76 05/31/25 04:05 71 20 97 05/31/25 04:03 98/62 L 05/31/25 04:03 98/62 L 05/31/25 03:59 60 15 92 05/31/25 03:50 62 14 93 05/31/25 03:14 73 19 96 05/31/25 03:08 103/68 05/31/25 02:56 67 16 94 05/31/25 02:43 05/31/25 02:33 73 18 90 05/31/25 02:30 36.9 C 05/31/25 02:08 74 19 89 L 05/31/25 02:00 100/53 L 05/31/25 01:44 76 19 91 05/31/25 01:09 73 22 94 05/31/25 01:01 131/70 05/31/25 00:30 97 H 25 H 92 05/31/25 00:09 05/31/25 00:01 147/83 H 05/31/25 00:01 147/83 H 05/31/25 00:01 147/83 H 05/31/25 00:00 78 20 95 05/31/25 00:00 80 05/30/25 23:36 87 21 96 05/30/25 23:15 90 30 H 95 05/30/25 23:12 36.8 C 87 20 139/92 92 05/30/25 23:01 92 H 18 95 05/30/25 22:45 86 05/30/25 22:00 93 H 24 148/98 H 93 05/30/25 21:30 93 H 20 135/78 93 05/30/25 21:21 89 26 H 154/84 H 90 05/30/25 21:05 98 H Pulse Ox O2 Del Method O2 Del Method 05/31/25 08:00 05/31/25 07:42 Room Air 05/31/25 07:30 05/31/25 07:15 05/31/25 07:00 05/31/25 05:30 05/31/25 05:27 05/31/25 05:27 05/31/25 05:27 05/31/25 05:07 05/31/25 05:07 05/31/25 04:56 05/31/25 04:32 05/31/25 04:05 05/31/25 04:05 05/31/25 04:03 05/31/25 04:03 05/31/25 03:59 05/31/25 03:50 05/31/25 03:14 05/31/25 03:08 05/31/25 02:56 05/31/25 02:43 94 Room Air 05/31/25 02:33 05/31/25 02:30 05/31/25 02:08 05/31/25 02:00 05/31/25 01:44 05/31/25 01:09 05/31/25 01:01 05/31/25 00:30 05/31/25 00:09 Room Air 05/31/25 00:01 05/31/25 00:01 05/31/25 00:01 05/31/25 00:00 05/31/25 00:00 05/30/25 23:36 05/30/25 23:15 05/30/25 23:12 Room Air 05/30/25 23:01 Room Air 05/30/25 22:45 05/30/25 22:00 Room Air 05/30/25 21:30 Room Air 05/30/25 21:21 Room Air 05/30/25 21:05 Diagnostic Findings Reviewed imaging, laboratory and diagnostic studies. Pertinent findings as below. Hemoglobin 12.5, stable BMP stable Glucoses reviewed Renal ultrasound reviewed, appears as chronic findings (3) Laceration of head Encounter type: initial encounter Foreign body presence: without foreign body Location of open wound of head: unspecified part of head Qualified Code(s): S01.91XA - Laceration without foreign body of unspecified part of head, initial encounter (4) Fall Encounter type: initial encounter Qualified Code(s): W19.XXXA - Unspecified fall, initial encounter
[2025-05-31] MEDS: REMOVE LIDODERM PATCH SCH (08:38)
[2025-05-31] MEDS: NAPROXEN 250 MG TAB PO SCH (08:50)
[2025-05-31] MEDS: DOCUSATE SODIUM/SENNA 50/8.6MG TAB PO SCH (08:51)
[2025-05-31] MEDS: ACETAMINOPHEN 500 MG TAB PO SCH (08:51)
[2025-05-31] MEDS: POLYETHYLENE (MIRALAX) 17 GM PACK ONE (08:53)
--- NOTE | 2025-05-31 10:18 | Electrocardiogram Report ---
Test Reason : Blood Pressure : */* mmHG Vent. Rate : 97 BPM Atrial Rate : 97 BPM P-R Int : 196 ms QRS Dur : 80 ms QT Int : 368 ms P-R-T Axes : 43 -29 22 degrees QTcB Int : 467 ms Normal sinus rhythm Poor R wave progression, consider anterior DE vs. lead placement vs. LVH Abnormal ECG When compared with ECG of 13-Oct-2020 19:54, No significant change was found Confirmed by Derik Love ([id number]) on 05/31/2025 10:18:15 AM Referred By: REFERRED SELF Confirmed By: Derik Love
--- NOTE | 2025-05-31 10:31 | Critical Care Progress Note ---
<Statement entered by Benedict Baker MD - 05/31/25 15:28> I, Benedict Baker MD, supervised and reviewed the physical exam, assessment, plan, and management provided by the Advanced Care Provider, for this patient encounter. I discussed the case with them, confirmed the findings, and I concur with the proposed plan of care. I was available for consultation throughout the encounter and provided guidance as needed. Date of Service May 31, 2025 Assessment & Plan (1) Closed rib fracture: (2) Fall: (3) Laceration of head: (4) Multiple fractures of ribs: Plan (1) Fall: (2) Closed rib fracture: (3) Laceration of head: (4) Prostate cancer: Plan Reason Critically Ill: 1. R 5th - 10th nondisplaced rib fractures 2. Mechanical fall 3. Alcohol intoxication 4. Laceration of scalp s/p primary repair Neuro - CAM ICU: Negative RASS GOAL 0 Multimodal pain management as ordered OOB to chair, ambulate Monitor for signs of ETOH withdrawal Cardiac - No acute concerns MAP goal > 65mmHg Continue home antihypertensives in AM as hemodynamics allow Respiratory - SpO2 goal > 92% Pulmonary hygiene Aggressive pulmonary toileting/therapy Encourage deep breathing Multimodal pain management as above GI - Diet: Carb consistent regular diet SUP: N/A Bowel regimen: Miralax RENAL/LYTES - Replete electrolytes as indicated No indication for hauser Maintain net even to net negative Stop mIVF when taking adequate PO ENDO - BG 140-180 per [facility] guidelines ISS if needed while inpatient HEME - No acute concerns ID - No acute concerns Bacitracin ointment to scalp laceration LINES/TUBES/DRAINS - PIV x2 DVT PROPHYLAXIS - Lovenox SCDs Ambulate 36 minutes is the time spent reviewing the chart, obtaining history, performing the physical exam, and updating the patient and bedside nurse to the plan of ca re. Admission and Anticipated Discharge Date Admission Date: May 30, 2025 Subjective Patient doing well this am. Remains on room air with SpO2 96%. Patient complaining of 8/10 pain this am at the right rib fracture site. Improved with pain medication. Continue pulmonary hygiene. Review of Systems Review of Systems: All systems reviewed & are unremarkable except as noted in HPI & below Physical Exam Physical Exam: VITALS: Reviewed. WEIGHT/BMI reviewed. GEN: Healthy appearing, well-developed, NAD. PSYCH: Good Judgment. AOx3. Normal memory, mood, and affect. HEENT -Head: Right forehead lac. -Eyes: PERRL, EOMI. No discharge or redn ess; -Ears: External ears are normal. -Nose: Normal nares. -Mouth and throat: MMM. Normal gums, muc tanner, palate,. Good dentition. NECK: Supple, with no masses. CV: RRR, no m/r/g. LUNGS: CTAB, no w/r/c. ABD: Soft, NT/ND, NBS, no masses or organomegaly. : Voiding SKIN: Warm, well perfused. No skin rashes or abnormal lesions. MSK: No deformities, Normal gait. EXT: No clubbing, cyanosis, or edema. NEURO: Ambulating with no limitations. Normal muscle strength and tone. No focal deficits. Results & Data Results & Data Vital Signs (Past 12 Hours) Vital Signs Temp Pulse Pulse Resp BP BP Pulse Ox 05/31/25 08:53 05/31/25 08:13 05/31/25 08:00 88 26 H 96 05/31/25 07:42 89 18 97 05/31/25 07:30 36.8 C 05/31/25 07:15 59 L 12 96 05/31/25 07:00 66 15 94 05/31/25 05:30 57 L 16 95 05/31/25 05:27 102/60 05/31/25 05:27 102/60 05/31/25 05:27 102/60 05/31/25 05:07 99/64 L 05/31/25 05:07 99/64 L 05/31/25 04:56 15 94 05/31/25 04:32 79 15 92 05/31/25 04:05 108/76 05/31/25 04:05 71 20 97 05/31/25 04:03 98/62 L 05/31/25 04:03 98/62 L 05/31/25 03:59 60 15 92 05/31/25 03:50 62 14 93 05/31/25 03:14 73 19 96 05/31/25 03:08 103/68 05/31/25 02:56 67 16 94 05/31/25 02:43 05/31/25 02:33 73 18 90 05/31/25 02:30 36.9 C 05/31/25 02:08 74 19 89 L 05/31/25 02:00 100/53 L 05/31/25 01:44 76 19 91 05/31/25 01:09 73 22 94 05/31/25 01:01 131/70 05/31/25 00:30 97 H 25 H 92 05/31/25 00:09 05/31/25 00:01 147/83 H 05/31/25 00:01 147/83 H 05/31/25 00:01 147/83 H 05/31/25 00:00 78 20 95 05/31/25 00:00 80 05/30/25 23:36 87 21 96 05/30/25 23:15 90 30 H 95 05/30/25 23:12 36.8 C 87 20 139/92 92 05/30/25 23:01 92 H 18 95 05/30/25 22:45 86 Pulse Ox O2 Del Method O2 Del Method 05/31/25 08:53 Room Air 05/31/25 08:13 Room Air 05/31/25 08:00 05/31/25 07:42 Room Air 05/31/25 07:30 05/31/25 07:15 05/31/25 07:00 05/31/25 05:30 05/31/25 05:27 05/31/25 05:27 05/31/25 05:27 05/31/25 05:07 05/31/25 05:07 05/31/25 04:56 05/31/25 04:32 05/31/25 04:05 05/31/25 04:05 05/31/25 04:03 05/31/25 04:03 05/31/25 03:59 05/31/25 03:50 05/31/25 03:14 05/31/25 03:08 05/31/25 02:56 05/31/25 02:43 94 Room Air 05/31/25 02:33 05/31/25 02:30 05/31/25 02:08 05/31/25 02:00 05/31/25 01:44 05/31/25 01:09 05/31/25 01:01 05/31/25 00:30 05/31/25 00:09 Room Air 05/31/25 00:01 05/31/25 00:01 05/31/25 00:01 05/31/25 00:00 05/31/25 00:00 05/30/25 23:36 05/30/25 23:15 05/30/25 23:12 Room Air 05/30/25 23:01 Room Air 05/30/25 22:45 Critical Care Results & Data Vital Signs (Past 12 Hours) Vital Signs Temp Pulse Pulse Resp BP BP Pulse Ox 05/31/25 08:53 05/31/25 08:13 05/31/25 08:00 88 26 H 96 05/31/25 07:42 89 18 97 05/31/25 07:30 36.8 C 05/31/25 07:15 59 L 12 96 05/31/25 07:00 66 15 94 05/31/25 05:30 57 L 16 95 05/31/25 05:27 102/60 05/31/25 05:27 102/60 05/31/25 05:27 102/60 05/31/25 05:07 99/64 L 05/31/25 05:07 99/64 L 05/31/25 04:56 15 94 05/31/25 04:32 79 15 92 05/31/25 04:05 108/76 05/31/25 04:05 71 20 97 05/31/25 04:03 98/62 L 05/31/25 04:03 98/62 L 05/31/25 03:59 60 15 92 05/31/25 03:50 62 14 93 05/31/25 03:14 73 19 96 05/31/25 03:08 103/68 05/31/25 02:56 67 16 94 05/31/25 02:43 05/31/25 02:33 73 18 90 05/31/25 02:30 36.9 C 05/31/25 02:08 74 19 89 L 05/31/25 02:00 100/53 L 05/31/25 01:44 76 19 91 05/31/25 01:09 73 22 94 05/31/25 01:01 131/70 05/31/25 00:30 97 H 25 H 92 05/31/25 00:09 05/31/25 00:01 147/83 H 05/31/25 00:01 147/83 H 05/31/25 00:01 147/83 H 05/31/25 00:00 78 20 95 05/31/25 00:00 80 05/30/25 23:36 87 21 96 05/30/25 23:15 90 30 H 95 05/30/25 23:12 36.8 C 87 20 139/92 92 05/30/25 23:01 92 H 18 95 05/30/25 22:45 86 Pulse Ox O2 Del Method O2 Del Method 05/31/25 08:53 Room Air 05/31/25 08:13 Room Air 05/31/25 08:00 05/31/25 07:42 Room Air 05/31/25 07:30 05/31/25 07:15 05/31/25 07:00 05/31/25 05:30 05/31/25 05:27 05/31/25 05:27 05/31/25 05:27 05/31/25 05:07 05/31/25 05:07 05/31/25 04:56 05/31/25 04:32 05/31/25 04:05 05/31/25 04:05 05/31/25 04:03 05/31/25 04:03 05/31/25 03:59 05/31/25 03:50 05/31/25 03:14 05/31/25 03:08 05/31/25 02:56 05/31/25 02:43 94 Room Air 05/31/25 02:33 05/31/25 02:30 05/31/25 02:08 05/31/25 02:00 05/31/25 01:44 05/31/25 01:09 05/31/25 01:01 05/31/25 00:30 05/31/25 00:09 Room Air 05/31/25 00:01 05/31/25 00:01 05/31/25 00:01 05/31/25 00:00 05/31/25 00:00 05/30/25 23:36 05/30/25 23:15 05/30/25 23:12 Room Air 05/30/25 23:01 Room Air 05/30/25 22:45 Lab & Micro Results (Past 24 Hours) RBC 3.62 M/uL (4.70-6.10) L 05/31/25 WBC 8.42 K/ul (4.8-10.8) 05/31/25 Hgb 12.5 g/dl (14.0-18.0) L 05/31/25 Hct 36.7 % (42.0-52.0) L 05/31/25 MCV 91.7 fL (80.0-100.0) 05/31/25 MCH 31.2 pg (25.0-34.0) 05/31/25 MCHC 34.0 g/dL (32.0-36.0) 05/31/25 RDW Standard Deviation 41.1 fL (36.4-46.3) 05/31/25 RDW Coefficient of Variation 12.2 % (11.5-14.5) 05/31/25 Plt Count 225 K/uL (130-400) 05/31/25 MPV 9.3 fL (9.4-12.4) L 05/31/25 Neutrophils (%) (Auto) 74.5 % 05/31/25 Lymphocytes (%) (Auto) 14.8 % 05/31/25 Monocytes # (Auto) 0.83 K/uL (0.11-0.59) H 05/31/25 Eosinophils # (Auto) 0.02 K/uL (0.00-0.50) 05/31/25 Immature Granulocyte % (Auto) 0.2 % 05/31/25 Neutrophils # (Auto) 6.27 K/uL (1.40-6.50) 05/31/25 Lymphocytes # (Auto) 1.25 K/uL (1.20-3.40) 05/31/25 Monocytes # (Auto) 0.83 K/uL (0.11-0.59) H 05/31/25 Eosinophils # (Auto) 0.02 K/uL (0.00-0.50) 05/31/25 Basophils # (Auto) 0.03 K/uL (0.00-0.20) 05/31/25 Immature Granulocyte # (Auto) 0.02 K/uL (0.01-0.20) 5 Na 133 mmol/L (136-145) L 05/31/25 K 4.2 mmol/L (3.5-5.1) 05/31/25 Cl 101 mmol/L (98-107) 05/31/25 CO2 27 mmol/L (21-32) 05/31/25 Anion Gap 5 (3-11) 05/31/25 BUN 26 mg/dl (6-23) H 05/31/25 Creatinine 1.18 mg/dl (0.6-1.4) 05/31/25 BUN/Creatinine Ratio 22.0 (10-20) H 05/31/25 Glu 161 mg/dl (70-99(Fasting)) H 05/31/25 Ca 8.4 mg/dl (8.6-10.3) L 05/31/25 Phosphorus Level 3.5 mg/dl (2.5-4.9) 05/31/25 Total Bilirubin 0.4 mg/dl (0.2-1.0) 05/30/25 AST 23 U/L (13-39) 05/30/25 ALT 19 U/L (7-52) 05/30/25 Alkaline Phosphatase 46 U/L (34-104) 05/30/25 TP 7.7 gm/dl (6.0-8.3) 05/30/25 Albumin 4.6 gm/dl (3.4-5.0) 05/30/25 Globulin 3.1 gm/dl (2.5-4.0) 05/30/25 Albumin/Globulin Ratio 1.5 (0.9-2) 05/30/25 Mg 1.8 mg/dl (1.7-2.4) 05/31/25 04:21 Calcium Level 8.4 mg/dl (8.6-10.3) L 05/31/25 04:21 Diagnostic Findings (Past 24 Hours) Cervical Spine CT 05/30/25 16:24 CT cervical spine without IV contrast History: Trauma Comparison: None Technique: Using multidetector thin collimation helical acquisition technique, axial, coronal and sagittal CT images through the cervical spine were obtained without intravenous contrast. Dose reduction techniques were achieved by using automatic exposure control and/or adjustment of mA and/or kV according to patient size and/or use of iterative reconstruction technique. Findings: The cervical vertebrae are normally aligned. Straightened cervical lordosis. No acute fracture or subluxation. No prevertebral edema. There are multilevel discogenic degenerative changes, including severe disc height loss at C5-6, and moderate to severe at C6-7 and C7-T1. There is 2 mm anterolisthesis of C4, related to degenerative facet change. No abnormality of the paraspinous soft tissues. Impression: No acute fracture or traumatic subluxation. Electronically signed by Adeel Stewart 05-30-2025 5:[address] 05/30/25 16:24 CT head without contrast History: Trauma Comparison: None Technique: Using multidetector thin collimation helical acquisition technique, axial, coronal and sagittal CT images from the skull base to the vertex were obtained without intravenous contrast. Dose reduction techniques were achieved by using automatic exposure control and/or adjustment of mA and/or kV according to patient size and/or use of iterative reconstruction technique. Findings: No intracranial hemorrhage, mass-effect, or midline shift. The ventricles are proportionate to the cerebral sulci. The hatch to white matter differentiation of the cerebral hemispheres is preserved. The basal cisterns are patent. There is moderate cerebral atrophy. Moderate, patchy low-attenuation changes in the white matter, most suggestive of sequelae of chronic small vessel ischemic disease. The visualized paranasal sinuses are clear. Mastoid air cells are clear. Impression: No acute intracranial pathology. Electronically signed by Adeel Stewart 05-30-2025 5:42 PM Ribs w/Chest X-Ray 05/30/25 16:24 EXAM: Portable AP chest radiograph and right rib series TECHNIQUE: AP portable radiograph of the chest and 5 views of the right ribs were obtained. INDICATION: Chest pain Comparison: None. FINDINGS: LINES and TUBES: None CARDIOVASCULAR: Cardiac silhouette is mildly enlarged in size. LUNGS/PLEURA: No focal consolidation identified. No significant pleural fluid. No discernible pneumothorax. OSSEOUS/OTHER: Mildly displaced acute traumatic fractures of the right 5th through the 9th ribs laterally IMPRESSION: Mildly displaced acute traumatic fractures of the right 5th through the 9th ribs laterally Electronically signed by Dallas Friedman 05-30-2025 6:36 PM Abdomen/Pelvis CT 05/30/25 18:28 CT of the abdomen pelvis with contrast Technique: Postcontrast axial images of the abdomen pelvis. Coronal and sagittal reformatted images made available for review No comparison Findings: Please see separate dictation for details of the intrathoracic contents. Nondisplaced right anterior lateral eighth rib fracture. Nondisplaced right posterior lateral ninth rib fracture. Nondisplaced right posterior lateral 10th rib fracture. Mild left hydroureteronephrosis. R 1.3 cm hypodensity right kidney measures greater than fluid density. Remaining solid abdominal organs unremarkable in appearance. No free air or intestinal obstruction. Distended urinary bladder. Calcified prostate. Multilevel degenerative changes of the lumbar spine. Bilateral hip osteoarthritis. Impression Nondisplaced right anterior lateral eighth rib fracture. Right posterior lateral ninth rib fracture. Nondisplaced right posterior lateral 10th rib fracture. Mild left hydroureteronephrosis 1.3 cm hypodensity right kidney measures greater than fluid density and indeterminate. Renal ultrasound recommended for further evaluation. Electronically signed by Jacob Baca 05-30-2025 8:[address] 05/30/25 18:28 CT of the chest with contrast Technique: Postcontrast axial images of the chest. Coronal and sagittal reformatted images made available for review No comparison Findings: Lungs are clear without focal infiltrates or effusions. Coronary artery calcifications. Thoracic aorta is unremarkable. No pulmonary embolus. No pneumothorax. Nondisplaced posterior lateral right ninth rib fracture. Nondisplaced posterior lateral right 10th rib fracture. Impression Nondisplaced posterior lateral right 9th and 10th rib fractures Electronically signed by Jacob Baca 05-30-2025 8:13 PM Renal Ultrasound 05/30/25 22:44 EXAM: US renal/blad retro comp CLINICAL HISTORY: R kidney hypodensity. TECHNIQUE: A renal ultrasound was performed using grayscale imaging. COMPARISON: No previous studies are available for comparison. FINDINGS: Right Kidney: The right kidney measures 10.3 x 5.9 x 5.6 cm. A small cortical cyst measuring 8 x 7 x 5 mm is seen in the middle pole, with a calcification likely within its wall. No hydronephrosis or calculi are identified. Renal parenchymal echogenicity is normal. Cortical thickness is within normal limits. Renal pelvis is within normal limits. Left Kidney: The left kidney measures 11.8 x 5.8 x 5.8 cm. Limited views. A focal hypoechoic area is seen at the junction of the left upper and mid pole and is seen bulging the renal cortex. It measures approximately 2 x 1.5 x 1.3 cm. No hydronephrosis or calculi are identified. Renal parenchymal echogenicity is normal. Cortical thickness is within normal limits. Renal pelvis is within normal limits. Urinary bladder: The urinary bladder is normally distended. No calculus or mass is noted in it. Bilateral ureteral jets are seen. The posterior wall shows mild irregularity, measuring 7 mm in thickness. IMPRESSION: A small cortical cyst measuring 8 x 7 x 5 mm is seen in the middle pole of the right kidney with a calcification likely within its wall. A focal hypoechoic area is seen at the junction of the upper and mid pole and is seen bulging the left renal cortex. Differentials include: prominent dromedary hump, complex cortical cyst. The urinary bladder wall in posterior aspect shows mild focal irregularity, measuring 7 mm in thickness. Further evaluation with CT renal protocol is advised if clinically indicated. Electronically signed by Anshu Cintron 05-31-2025 01:39 AM I & O Totals 24 Hours 05/30/25 05/31/25 06/01/25 06:59 06:59 06:59 Intake Total 1120 / 1120 Output Total 1100 / 1100 Balance 20 / 20 Cumulative 05/30/25 16:06 thru 05/31/25 06:00 Intake Total 1120 Output Total 1100 Balance 20 RT Ventilator Mngmt (Last Documented) Ventilator Ordered Settings Respiratory Rate 26 05/31/25 08:00 Ventilator - PT Measurements Respiratory Rate 26 Coding Level of Care Code 98375 SUB INP/OBS CARE 2/35MIN Diagnoses Closed rib fracture S22.41XA Encounter type: initial encounter Laterality: right Rib fracture type: multiple ribs Fall W19.XXXA Encounter type: initial encounter Laceration of head S01.91XA Encounter type: initial encounter Foreign body presence: without foreign body Location of open wound of head: unspecified part of head Multiple fractures of ribs S22.49XA (1) Closed rib fracture Encounter type: initial encounter Laterality: right Rib fracture type: multiple ribs Qualified Code(s): S22.41XA - Multiple fractures of ribs, right side, initial encounter for closed fracture (2) Fall Encounter type: initial encounter Qualified Code(s): W19.XXXA - Unspecified fall, initial encounter (3) Laceration of head Encounter type: initial encounter Foreign body presence: without foreign body Location of open wound of head: unspecified part of head Qualified Code(s): S01.91XA - Laceration without foreign body of unspecified part of head, initial encounter
[2025-05-31] MEDS ORDERED: ONDANSETRON INJ 2 MG/ML 2 ML VIAL IV PRN (14:27)
[2025-05-31 15:09] VITALS: RESP 18
[2025-05-31] MEDS: LIDOCAINE 5% 1 PATCH TD SCH (21:00)
[2025-06-01 08:28] VITALS: BP 126/71; PULSE 82; TEMP 98.1; O2SAT 93
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
[2025-06-03 11:26] LABS: Hydrocodone Urine NEGATIVE ng/mL (<50); Hydromor Urine NEGATIVE ng/mL (<50); Noroxycodone Urine NEGATIVE ng/mL (<50); Oxymorph Urine NEGATIVE ng/mL (<50)
== END 2025-06-01 10:31 | disposition home or self-care (01) | DRG 184 ==
LOC: ED 16:15 → 1E 21:21 → 3E 05-31 21:59